=== PATIENT | female | born 1970 | race Caucasian/White ===

== ENCOUNTER 2016-08-01 22:55 | Emergency (ER) | payer OTHER ==
[~2016-08-01 22:55] MED LIST: LASIX20 MG PO; LOVENOX150 MG/ML SC; WARFARIN SODIUM10 MG PO; xarelto PO
--- NOTE | 2016-08-02 02:42 | ED ORDER SUMMARY ---
..... Patient: DESHAWN GENAO OrderSheet [facility] VisitID: [id number] [place] [address] 45y, F Registration Date/Time: 08/01/2016 ORDER SHEET Weight: 97.5 kg (stated) Allergies: Penicillins GENERAL ORDERS: CBC w Diff Urgent (23:33 08/01/2016 Tesha THORNTON) (Ack 23:35 Georgina) (23:37 RCollier R.N.) CMP Urgent (23:33 08/01/2016 Tesha THORNTON) (Ack 23:35 Georgina) (23:37 RCollier R.N.) PT with INR Urgent (23:33 08/01/2016 Tesha THORNTON) (Ack 23:35 Georgina) (23:37 RCollier R.N.) Cardiac Panel Stat (23:33 08/01/2016 Tesha THORNTON) (Ack 23:35 Georgina) (23:37 RCollier R.N.) D-Dimer Urgent (23:33 08/01/2016 Tesha THORNTON) (Ack 23:35 Georgina) (23:37 RCollier R.N.) Serum Qualitative Urgent (23:33 08/01/2016 Tesha THORNTON) (Ack 23:35 Georgina) (23:37 RCollier R.N.) US Venous Right Urgent (23:48 08/01/2016 Tesha THORNTON) (Ack 23:54 Georgina) (Cancelled: Other0:51 Stephanie ER Director Of Donor Relations) CTA Thorax w Cont (No) (See report) Urgent (23:56 08/01/2016 Tesha THORNTON) (Ack 23:58 Georgina) (0:43 Irma) EKG - ER Stat (23:57 08/01/2016 Tesha THORNTON) (Ack 23:58 Georgina) (0:04 Danielena) US Venous Right Urgent (00:51 08/02/2016 Stephanie ER Director Of Donor Relations written order Tesha THORNTON) (Ack 0:53 Georgina) (0:59 GUnger) MEDICATION ORDERS: -- (Xarelto 15 mg po now) (01:52 08/02/2016 Tesha THORNTON) (Ack 1:53 RCollier R.N.) (2:01 RCollier R.N.) IV FLUIDS: IV Saline Lock (23:33 08/01/2016 Tesha THORNTON) (Ack 23:35 RCollier R.N.) IV NS : initial bolus 500 mL (1000 mL/hr), then 125 mL/hr for 4h (NOW); Urgent (23:56 08/01/2016 Tesha THORNTON) (Ack 0:00 RCollier R.N.) (0:01 RCollier R.N.) ORDER SHEET NOTES: [Electronically signed by Lazarus Salas MD (02:54 08/02/2016)] [Electronically signed by Ina Pena R.N. (16:06 08/05/2016)] [Electronically locked/signed by Ina Pena R.N. (16:06 08/05/2016)]
--- NOTE | 2016-08-02 02:42 | ED NURSING NOTES ---
Clinical Report - Nurses [facility] [place] [address] 08/01/2016 22:54 [id number] TRI[facility] Triage time 22:59. Acuity: LEVEL 3. Chief Complaint: RIGHT LOWER EXTREMITY PAIN and SWELLING. Alert. No acute distress. SEPSIS SCREEN: Sepsis Screen. Negative (no infection suspected/documented). --23:04 Ina Pena R.N. 22:59 08/01/16. BP: 127/71. HR: 90. RR: 15 (regular and unlabored). O2 saturation: 100% on room air. Temp: 98.5 F (oral). Pain level now: 09/03. --23:04 Ina Pena R.N. Weight: 97.5 kg stated. Height/Length: 64 inches Per Patient. BMI: 36.9. --23:01 Ina Pena R.N. Medications None. --23:01 Ina Pena R.N. Allergies Penicillins. --23:02 Ina Pena R.N. History Arrived by private vehicle. Historian: patient. Unaccompanied. No injury occurred. This occurred (about 1 1/2 weeks ago). PAST MEDICAL HX: Tetanus status: up-to-date. Immunizations: up-to-date. Last normal menstrual period was 6 weeks ago. Sexual history - sexually active. No contraception. SOCIAL HX: Heavy tobacco smoker (cigarette)- less than 1 pack per day. Regular alcohol use. No drug use. NUTRITIONAL RISK ASSESSMENT: The nutritional risk assessment revealed no deficiencies. FUNCTIONAL ASSESSMENT: Functional assessment: no impairments noted. --23:04 Ina Pena R.N. ( Pt states she has hx of DVT & PE, feels the same symptoms today.). --23:06 Ina Pena R.N. SOCIAL HX: The patient is homeless. --23:21 Ina Pena R.N. PROBLEMS: DVT - Deep Venous Thrombosis. Lower Extremity Pain. DVT - Deep Venous Thrombosis. Pulmonary Embolism. Sinus Problems. Immunizations. Ectopic . Migraine Headache. Myofascial Strain. Back Injury. --: Ina Pena R.N. ADDITIONAL SURGERIES: Appendectomy. Bilateral Tubal Ligation. Ectopic preg. Sinus Surgery. --: Ina Pena R.N. Interventions ID band on patient. To treatment room. --: Ina Pena R.N. PHYSICAL ASSESSMENT Ambulatory to room. Patient gowned. GENERAL / NEURO / PSYCH: Oriented X 4. Alert. Appears in no acute distress. EXTREMITIES: Bilateral non-pitting edema of the lower extremities involving both lower legs. SKIN: Skin intact. Skin is warm and dry. --: Ina Pena R.N. NURSING PROGRESS NOTES Two patient identifiers checked. Call light placed in reach. Side rails up x 1. Bed placed in lowest position. Brakes of bed on. --: Ina Pena R.N. Care transferred and report given. --23: Ina Pena R.N. 23:08/01/2016 Site #1 started via IV in the left forearm with an 20g angiocath, with aseptic technique and good blood return; one attempt. Blood drawn: rainbow set. Labeled in the presence of the patient and sent to the lab. Saline lock flushed with 10 mL saline (Started by Shivam Brown RN). --23: Ina Pena R.N. 00:08/02/2016 Started bag #1 1000 mL IV Fluids IV NS (Saline); bolus of 500 mL over 30 minute(s) then at 125 mL/hr via site #1 via IV pump. Allergies verified and confirmed 5 rights. IV patency established. IV site checked: no pain, redness, or swelling. IV flushed thoroughly pre- and post-medication administration. --00: Ina Pena R.N. EKG time: (0005). EKG was ordered, performed by a tech and shown to the ED physician. --00:06 Ahsan Montiel, ER Automatic Centrifugal Station Operator 00:11 08/02/2016 Hold IV Fluids IV NS: due to diagnostic studies. --00: Ina Pena R.N. 00:25. Patient returned from CT by stretcher with tech. --00:25 Ina Pena R.N. 00:30 08/02/16. BP: 111/57. HR: 74. RR: 15 (regular and unlabored). O2 saturation: 95% on room air. Shannon-Barraza pain scale: 2/10. --00:30 Ina Pena R.N. 00:30 08/02/2016 Restart IV Fluids IV NS: bag #1 500 mL/hr via IV pump. IV patency established. IV site checked: no pain, redness, or swelling. IV flushed thoroughly. Confirmed 5 Rights. --00:31 Ina Pena R.N. 02:00 08/02/2016 Zarelto * PO 15mg --02:01 Ina Pean R.N. DISPOSITION / DISCHARGE 02:04 08/02/16. BP: 113/59. HR: 88. RR: 15. O2 saturation: 99% on room air. Shannon-Barraza pain scale: 2/10. --02:05 Ina Pena R.N. 02:00 08/02/2016 IV Fluids IV NS Discontinued: bag #1 STOPPED. Total amount infused: 642 mL. IV patency established. IV site checked: no pain, redness, or swelling. IV flushed thoroughly. --02:05 Ina Pena R.N. 02:01 08/02/2016 Site #1 removed upon discharge. Catheter intact. Manual pressure and bandage applied. --02:05 Ina Pena R.N. Locked/Released at 08/05/2016 16:06 by Ina Pena R.N.
--- NOTE | 2016-08-02 02:42 | ED CLINICAL REPORT ---
Clinical Report - Physicians/Mid Levels [facility] [address] [place] [address] 08/01/2016 22:54 [id number] Time Seen: 23:07. Arrived- By private vehicle. Historian- patient. HISTORY OF PRESENT ILLNESS Chief Complaint: LOWER EXTREMITY PAIN and SWELLING. Severity is described as being moderate. It has become recently worse. The quality is noted to be aching, "pain" and similar to prior episodes. This started several days ago and is still present and now worse. It was gradual in onset and has been constant. Symptoms located in the area of the right leg. The patient has had swelling. Patient notes the possibility of an injury. Mechanism of injury- ("splitting wood"). Similar symptoms previously: Many times. Diagnosis: deep vein thrombosis. ( patient reports that she has had multiple prior DVTs and pulmonary embolisms. She says that she has had an evaluation to see if she has any heritable causes of this and says that these tests were negative. She says that she has been on Coumadin in the past but that it doesn't work well with her as her levels are very labile. She was most recently on Xarelto, but has not taken any recently.). REVIEW OF SYSTEMS The patient has had moderate calf pain involving the right leg. No cough, palpitations, abdominal pain, constipation or diarrhea. No nausea, vomiting or urinary problems. She has had mild difficulty breathing. The patient has also had dyspnea on exertion. She has had moderate pedal edema involving the right leg. All systems otherwise negative, except as recorded above. PAST HISTORY Problems: DVT - Deep Venous Thrombosis. Lower Extremity Pain. DVT - Deep Venous Thrombosis. Pulmonary Embolism. Sinus Problems. Ectopic . Migraine Headache. Myofascial Strain. Back Pain. Additional Surgeries: Appendectomy. Bilateral Tubal Ligation. Ectopic preg. Sinus Surgery. Medications: None. Allergies: Penicillins. SOCIAL HISTORY Current every day light tobacco smoker (cigarette)- less than 1/2 a pack per day. No alcohol use or drug use. She is homeless. FAMILY HISTORY Diabetes in grandparent; heart disease in multiple family members, grandparent. ADDITIONAL NOTES The nursing notes have been reviewed. PHYSICAL EXAM Vital Signs: 08/01/2016 22:59 BP: 127/71. HR: 90. RR: 15. O2 saturation: 100%. Temp: 98.5 F. Pain level now: 09/03. Have been reviewed. Appearance: Alert. Eyes: Pupils equal, round and reactive to light. ENT: Pharynx normal. Neck: Normal inspection. Neck supple. CVS: Normal heart rate and rhythm. Heart sounds normal. Respiratory: No respiratory distress. Breath sounds normal. Abdomen: Soft and nontender. No organomegaly. Back: Normal inspection. Skin: Skin warm and dry. Extremities: Mild edema of the right lower extremity. Mild right-sided calf tenderness. Extremities otherwise negative. LABS, X-RAYS, AND EKG EKG: Normal EKG. Rate: 77. Prior EKG unavailable. The study has been independently viewed by me. Chest CT: Small pulmonary embolism (multiple). The study was interpreted contemporaneously by me and discussed with the radiologist. Lower Extremity Sonography: Positive exam (proximal popliteal extending through the posterior tibial veins). The exam was performed by a automobile technician. Laboratory Tests: Serum Qualitative: (YOMAIRA: 08/01/2016 23:05) ( [facility] 08[facility]01[facility] 23:43) Final results Test Result Flag Units (Reference) , SERUM NEGATIVE CBC w Diff: (YOMAIRA: 08/01/2016 23:05) ( [facility] 08/01/2016 23:42) Final results Test Result Flag Units (Reference) WHITE BLOOD COUNT 8.8 K/uL (4.5-11.5) RED BLOOD COUNT 4.92 M/uL (4.00-5.20) HEMOGLOBIN 15.1 gm/dL (12.0-16.0) HEMATOCRIT 46.0 % (36.0-46.0) MEAN CELL VOLUME 93 fL (80-100) MEAN CORPUSCULAR HGB 31 pg (26-34) MEAN CORPUSCULAR HGB CONC 33 g/dL (31-37) RED CELL DISTRIBUTION WIDTH 13.7 % (11.6-14.8) PLATELET COUNT 120 L K/uL (150-400) LYMPH % 32.3 % (25-40) MONO % 6.1 % (3-14) GRANULOCYTE % 61.6 (53-90) PT with INR: (YOMAIRA: 08/01/2016 23:05) ( [facility] 08/01/2016 23:45) Final results Test Result Flag Units (Reference) INR 0.9 (0.8-1.2) Low Intensity Therapy: INR 1.5-2.0 PT range 18.5-23.1Mod.Intensity Therapy: INR 2.0-3.0 PT range 23.1-31.5High Intensity Therapy: INR 2.5-3.5 PT range 27.4-35.5High Intensity Therapy 2: INR 3.0-4.0 PT range 31.5-39.3 D-DIMER QUANTITATIVE 3.62 H ug/mLFEU (0.27-0.52) The primary value of this quantitative assay relates toits negative predictive value (i.e. exclusion) of pulmonaryembolism/deep vein thrombosis/DIC.Elevated levels of d-dimer may also occur with:, age, cancer, inflammation, liver disease,post-op, infection, hematoma, coronary disease, peripheralarteriopathy, bleeding disorders and thrombolytic treatment.Results should be correlated with other clinical andradiological data.Testing Methodology: Latex Immunoassay CHEM 13 PANEL: (YOMAIRA: 08/01/2016 23:05) ( [facility] 08/01/2016 23:54) Final results Test Result Flag Units (Reference) GLUCOSE 110 mg/dL (70-110) BUN 14 mg/dL (7-18) CREATININE 0.8 mg/dL (0.6-1.3) Estimated GFR >60 mL/min Estimated GFR- >60 mL/min Note: Persistent reduction over 3 months in eGFR<60 mL/min/1.73 m2 defines CKD. Patients with eGFR values>=60 mL/min/1.73 m2 may also have CKD if evidence ofpersistent proteinuria. Additional information may be foundat www.kidney.org. SODIUM 142 mmol/L (136-145) POTASSIUM 4.2 mmol/L (3.5-5.1) CHLORIDE 106 mmol/L (98-107) CARBON DIOXIDE 28 mmol/L (21-32) CALCIUM 9.0 mg/dL (8.5-10.1) TOTAL PROTEIN 6.6 g/dL (6.4-8.2) ALBUMIN 3.5 g/dL (3.3-5.0) BILIRUBIN, TOTAL 0.2 mg/dL (0.0-1.0) ALKALINE PHOSPHATASE 68 U/L (46-116) AST (SGOT) 9 L U/L (15-37) ALT (SGPT) 23 U/L (12-78) MAGNESIUM 2.0 mg/dL (1.8-2.4) CPK 73 U/L (24-260) TROPONIN I <0.05 ng/mL (0.00-1.5) TROPONIN REFERENCE RANGE:<0.1 NEGATIVE0.1-1.5 INDETERMINANT>1.5 POSITIVE . PROGRESS AND PROCEDURES Patient/family counseled. Old medical records reviewed. Disposition: Discharged. Condition: stable. CLINICAL IMPRESSION Acute pulmonary embolism. Acute deep venous thrombosis of the right popliteal vein. INSTRUCTIONS Warnings: Further evaluation is necessary. GENERAL WARNINGS: Return or contact your physician immediately if your condition worsens or changes unexpectedly, if not improving as expected, or if other problems arise. Prescription Medications: Xarelto 15 mg tabs # forty two (42) tabs Si tab po Q 12 H. Follow-up: Return to the emergency department as needed. Understanding of the discharge instructions verbalized by patient. Follow-up with: [facility], , , [address], , [place], [id number] Follow up tomorrow. Call for an appointment. (Electronically signed by Lazarus Salas MD 08/02/2016 2:54)
--- NOTE | 2016-08-02 02:42 | ED CLINICAL REPORT ---
Clinical Report - Physicians/Mid Levels [facility] [address] [place] [address] 08/01/2016 22:54 [id number] Time Seen: 23:07. Arrived- By private vehicle. Historian- patient. HISTORY OF PRESENT ILLNESS Chief Complaint: LOWER EXTREMITY PAIN and SWELLING. Severity is described as being moderate. It has become recently worse. The quality is noted to be aching, "pain" and similar to prior episodes. This started several days ago and is still present and now worse. It was gradual in onset and has been constant. Symptoms located in the area of the right leg. The patient has had swelling. Patient notes the possibility of an injury. Mechanism of injury- ("splitting wood"). Similar symptoms previously: Many times. Diagnosis: deep vein thrombosis. ( patient reports that she has had multiple prior DVTs and pulmonary embolisms. She says that she has had an evaluation to see if she has any heritable causes of this and says that these tests were negative. She says that she has been on Coumadin in the past but that it doesn't work well with her as her levels are very labile. She was most recently on Xarelto, but has not taken any recently.). REVIEW OF SYSTEMS The patient has had moderate calf pain involving the right leg. No cough, palpitations, abdominal pain, constipation or diarrhea. No nausea, vomiting or urinary problems. She has had mild difficulty breathing. The patient has also had dyspnea on exertion. She has had moderate pedal edema involving the right leg. All systems otherwise negative, except as recorded above. PAST HISTORY Problems: DVT - Deep Venous Thrombosis. Lower Extremity Pain. DVT - Deep Venous Thrombosis. Pulmonary Embolism. Sinus Problems. Ectopic . Migraine Headache. Myofascial Strain. Back Pain. Additional Surgeries: Appendectomy. Bilateral Tubal Ligation. Ectopic preg. Sinus Surgery. Medications: None. Allergies: Penicillins. SOCIAL HISTORY Current every day light tobacco smoker (cigarette)- less than 1/2 a pack per day. No alcohol use or drug use. She is homeless. FAMILY HISTORY Diabetes in grandparent; heart disease in multiple family members, grandparent. ADDITIONAL NOTES The nursing notes have been reviewed. PHYSICAL EXAM Vital Signs: 08/01/2016 22:59 BP: 127/71. HR: 90. RR: 15. O2 saturation: 100%. Temp: 98.5 F. Pain level now: 09/03. Have been reviewed. Appearance: Alert. Eyes: Pupils equal, round and reactive to light. ENT: Pharynx normal. Neck: Normal inspection. Neck supple. CVS: Normal heart rate and rhythm. Heart sounds normal. Respiratory: No respiratory distress. Breath sounds normal. Abdomen: Soft and nontender. No organomegaly. Back: Normal inspection. Skin: Skin warm and dry. Extremities: Mild edema of the right lower extremity. Mild right-sided calf tenderness. Extremities otherwise negative. LABS, X-RAYS, AND EKG EKG: Normal EKG. Rate: 77. Prior EKG unavailable. The study has been independently viewed by me. Chest CT: Small pulmonary embolism (multiple). The study was interpreted contemporaneously by me and discussed with the radiologist. Lower Extremity Sonography: Positive exam (proximal popliteal extending through the posterior tibial veins). The exam was performed by a body technician. Laboratory Tests: Serum Qualitative: (YOMAIRA: 08/01/2016 23:05) ( [facility] 23:43) Final results Test Result Flag Units (Reference) , SERUM NEGATIVE CBC w Diff: (YOMAIRA: 08/01/2016 23:05) ( [facility] 08/01/2016 23:42) Final results Test Result Flag Units (Reference) WHITE BLOOD COUNT 8.8 K/uL (4.5-11.5) RED BLOOD COUNT 4.92 M/uL (4.00-5.20) HEMOGLOBIN 15.1 gm/dL (12.0-16.0) HEMATOCRIT 46.0 % (36.0-46.0) MEAN CELL VOLUME 93 fL (80-100) MEAN CORPUSCULAR HGB 31 pg (26-34) MEAN CORPUSCULAR HGB CONC 33 g/dL (31-37) RED CELL DISTRIBUTION WIDTH 13.7 % (11.6-14.8) PLATELET COUNT 120 L K/uL (150-400) LYMPH % 32.3 % (25-40) MONO % 6.1 % (3-14) GRANULOCYTE % 61.6 (53-90) PT with INR: (YOMAIRA: 08/01/2016 23:05) ( [facility] 08/01/2016 23:45) Final results Test Result Flag Units (Reference) INR 0.9 (0.8-1.2) Low Intensity Therapy: INR 1.5-2.0 PT range 18.5-23.1Mod.Intensity Therapy: INR 2.0-3.0 PT range 23.1-31.5High Intensity Therapy: INR 2.5-3.5 PT range 27.4-35.5High Intensity Therapy 2: INR 3.0-4.0 PT range 31.5-39.3 D-DIMER QUANTITATIVE 3.62 H ug/mLFEU (0.27-0.52) The primary value of this quantitative assay relates toits negative predictive value (i.e. exclusion) of pulmonaryembolism/deep vein thrombosis/DIC.Elevated levels of d-dimer may also occur with:, age, cancer, inflammation, liver disease,post-op, infection, hematoma, coronary disease, peripheralarteriopathy, bleeding disorders and thrombolytic treatment.Results should be correlated with other clinical andradiological data.Testing Methodology: Latex Immunoassay CHEM 13 PANEL: (YOMAIRA: 08/01/2016 23:05) ( [facility] 08/01/2016 23:54) Final results Test Result Flag Units (Reference) GLUCOSE 110 mg/dL (70-110) BUN 14 mg/dL (7-18) CREATININE 0.8 mg/dL (0.6-1.3) Estimated GFR >60 mL/min Estimated GFR- >60 mL/min Note: Persistent reduction over 3 months in eGFR<60 mL/min/1.73 m2 defines CKD. Patients with eGFR values>=60 mL/min/1.73 m2 may also have CKD if evidence ofpersistent proteinuria. Additional information may be foundat www.kidney.org. SODIUM 142 mmol/L (136-145) POTASSIUM 4.2 mmol/L (3.5-5.1) CHLORIDE 106 mmol/L (98-107) CARBON DIOXIDE 28 mmol/L (21-32) CALCIUM 9.0 mg/dL (8.5-10.1) TOTAL PROTEIN 6.6 g/dL (6.4-8.2) ALBUMIN 3.5 g/dL (3.3-5.0) BILIRUBIN, TOTAL 0.2 mg/dL (0.0-1.0) ALKALINE PHOSPHATASE 68 U/L (46-116) AST (SGOT) 9 L U/L (15-37) ALT (SGPT) 23 U/L (12-78) MAGNESIUM 2.0 mg/dL (1.8-2.4) CPK 73 U/L (24-260) TROPONIN I <0.05 ng/mL (0.00-1.5) TROPONIN REFERENCE RANGE:<0.1 NEGATIVE0.1-1.5 INDETERMINANT>1.5 POSITIVE . PROGRESS AND PROCEDURES Patient/family counseled. Old medical records reviewed. Disposition: Discharged. Condition: stable. CLINICAL IMPRESSION Acute pulmonary embolism. Acute deep venous thrombosis of the right popliteal vein. INSTRUCTIONS Warnings: Further evaluation is necessary. GENERAL WARNINGS: Return or contact your physician immediately if your condition worsens or changes unexpectedly, if not improving as expected, or if other problems arise. Prescription Medications: Xarelto 15 mg tabs # forty two (42) tabs Si tab po Q 12 H. Follow-up: Return to the emergency department as needed. Understanding of the discharge instructions verbalized by patient. Follow-up with: [facility], , , [address], , [place], [phone] Follow up tomorrow. Call for an appointment. (Electronically signed by Lazarus Salas MD 08/02/2016 2:54)
--- NOTE | 2016-08-02 02:42 | ED ORDER SUMMARY ---
..... Patient: DESHAWN GENAO OrderSheet [facility] VisitID: [id number] [place] [address] 45y, F Registration Date/Time: 08/01/2016 ORDER SHEET Weight: 97.5 kg (stated) Allergies: Penicillins GENERAL ORDERS: CBC w Diff Urgent (23:33 08/01/2016 Tesha THORNTON) (Ack 23:35 Georgina) (23:37 RCollier R.N.) CMP Urgent (23:33 08/01/2016 Tesha THORNTON) (Ack 23:35 Georgina) (23:37 RCollier R.N.) PT with INR Urgent (23:33 08/01/2016 Tesha THORNTON) (Ack 23:35 Georgina) (23:37 RCollier R.N.) Cardiac Panel Stat (23:33 08/01/2016 Tesha THORNTON) (Ack 23:35 Georgina) (23:37 RCollier R.N.) D-Dimer Urgent (23:33 08/01/2016 Tesha THORNTON) (Ack 23:35 Georgina) (23:37 RCollier R.N.) Serum Qualitative Urgent (23:33 08/01/2016 Tesha THORNTON) (Ack 23:35 Georgina) (23:37 RCollier R.N.) US Venous Right Urgent (23:48 08/01/2016 Tesha THORNTON) (Ack 23:54 Georgina) (Cancelled: Other0:51 Stephanie ER Research Hydraulic Engineer) CTA Thorax w Cont (No) (See report) Urgent (23:56 08/01/2016 Tesha THORNTON) (Ack 23:58 Georgina) (0:43 Irma) EKG - ER Stat (23:57 08/01/2016 Tesha THORNTON) (Ack 23:58 Georgina) (0:04 Danielena) US Venous Right Urgent (00:51 08/02/2016 Stephanie ER Research Hydraulic Engineer written order Tesha THORNTON) (Ack 0:53 Georgina) (0:59 GUnger) MEDICATION ORDERS: -- (Xarelto 15 mg po now) (01:52 08/02/2016 Tesha THORNTON) (Ack 1:53 RCollier R.N.) (2:01 RCollier R.N.) IV FLUIDS: IV Saline Lock (23:33 08/01/2016 Tesha THRONTON) (Ack 23:35 RCollier R.N.) IV NS : initial bolus 500 mL (1000 mL/hr), then 125 mL/hr for 4h (NOW); Urgent (23:56 08/01/2016 Tesha THORNTON) (Ack 0:00 RCollier R.N.) (0:01 RCollier R.N.) ORDER SHEET NOTES: [Electronically signed by Lazarus Salas MD (02:54 08/02/2016)] [Electronically signed by Ina Pena R.N. (16:06 08/05/2016)] [Electronically locked/signed by Ina Pena R.N. (16:06 08/05/2016)]
--- NOTE | 2016-08-02 07:00 | DIAGNOSTIC IMAGING REPORT ---
PROCEDURE: US VENOUS - RIGHT EXT INDICATION: Right leg swelling. History of left DVT. TECHNIQUE: Color Doppler duplex imaging of the deep and superficial venous system without and with compression. COMPARISON: Compared to venous ultrasound of the left lower extremity on 01/03/1969 and 01/01/2016. FINDINGS: There is acute occlusive deep vein thrombosis extending from the distal popliteal vein into the posterior tibial veins. The superficial femoral, common femoral, profunda femoral veins are normal. Greater saphenous vein is normal IMPRESSION: 1. There is acute occlusive deep vein thrombosis extending from the distal popliteal vein into the posterior tibial calf veins.
--- NOTE | 2016-08-02 07:08 | DIAGNOSTIC IMAGING REPORT ---
PROCEDURE: CTA THORAX WITH CONTRAST INDICATION: Shortness of breath. Chest pain. History of pulmonary embolus. Elevated D-dimer (3.62). TECHNIQUE: 90 ml of Isovue 370 was injected intravenously and axial images were obtained of the entire thorax with 3D sagittal and coronal MIP reconstructions. Preliminary report provided by Melinda Mcwilliams MD ([facility]). COMPARISON: Comparison is made to CT bone arteriogram on 01/09. FINDINGS: There are moderate to large emboli in the right lower lobe, anterior segment right upper lobe, and posterior segment right lower lobe. Lungs are clear. Heart and mediastinum are normal. Thorax is normal. There is a 2.6 cm stable low density nodule in the left adrenal gland (2 HU) consistent with benign adenoma or cyst. IMPRESSION: 1. Moderate to large right pulmonary emboli. 2. Stable 2.6 cm left adrenal benign adenoma (versus cyst). 3. Preliminary report provided to Dr. Salas. All CT scans at this facility use dose modulation, iterative reconstruction, and/or weight-based dosing when appropriate to reduce radiation dose to as low as reasonably achievable.
--- NOTE | 2016-08-05 16:07 | ED MAR SUMMARY ---
..... Medication Administration Record [facility] [address] [place] [address] Patient: DESHAWN GENAO Visit ID: [id number] 45y, F Weight: 97.5 kg Height/Length: 64 in BMI: 36.9 ALLERGIES: Penicillins Start 00:01 08/02/2016 Ina Pena RMalachi, Stop 02:00 08/02/2016 Ina Pena R.N. Medication Administered: IV NS (SALINE), Dose: IV Fluids, Rate: 125 mL/hr, Bolus: 500 mL over 30 minute(s), Dispensed: 1000 mL bag, Site: #1 left forearm. Medication Ordered: IV NS : initial bolus 500 mL (1000 mL/hr), then 125 mL/hr for 4h (NOW); Urgent. Given 02:00 08/02/2016 Ina Pena RMalachi Medication Administered: Zarelto *, Dose: 15mg * PO. Medication Ordered: -- (Xarelto 15 mg po now).
--- NOTE | 2016-08-05 16:07 | ED MED RECONCILIATION SUMMARY ---
Patient: DESHAWN GENAO Medication Reconciliation Report [facility] VisitID: [id number] [address] [place] [address] 45y, F Registration Date/Time: 08/01/2016 Weight: 97.5 kg Height/Length: 64 in. BMI: 36.9 ALLERGIES: Penicillins The patient's Home Medications are listed below: NONE. The source(s) of the original Home Medication information: Not obtained. The following Medications were given to the patient in the Emergency Department: IV NS IV Fluids bolus 500 mL over 30 minute(s), then 125 mL/hr, administered: 08/02/2016 12:01:00 AM Zarelto PO 15mg, administered: 08/02/2016 2:00:00 AM The following Medications were prescribed to the patient: Xarelto 15 mg tabs # forty two (42) tabsSi tab po Q 12 H. -- Lazarus Salas MD
--- NOTE | 2016-08-05 16:07 | ED MED RECONCILIATION SUMMARY ---
Patient: DESHAWN GENAO Medication Reconciliation Report [facility] VisitID: [id number] [address] [place] [address] 45y, F Registration Date/Time: 08/01/2016 Weight: 97.5 kg Height/Length: 64 in. BMI: 36.9 ALLERGIES: Penicillins The patient's Home Medications are listed below: NONE. The source(s) of the original Home Medication information: Not obtained. The following Medications were given to the patient in the Emergency Department: IV NS IV Fluids bolus 500 mL over 30 minute(s), then 125 mL/hr, administered: 08/02/2016 12:01:00 AM Zarelto PO 15mg, administered: 08/02/2016 2:00:00 AM The following Medications were prescribed to the patient: Xarelto 15 mg tabs # forty two (42) tabsSi tab po Q 12 H. -- Lazarus Salas MD
--- NOTE | 2016-08-05 16:07 | ED DISCHARGE INSTRUCTIONS ---
Patient: DESHAWN GENAO General Instructions [facility] VisitID: [id number] [address] [place] [address] 45y, F Registration Date/Time: 08/01/2016 Acute pulmonary embolism. Acute deep venous thrombosis of the right popliteal vein. INSTRUCTIONS Warnings: Further evaluation is necessary. GENERAL WARNINGS: Return or contact your physician immediately if your condition worsens or changes unexpectedly, if not improving as expected, or if other problems arise. Prescription Medications: Xarelto 15 mg tabs # forty two (42) tabs Si tab po Q 12 H. Follow-up: Return to the emergency department as needed. Understanding of the discharge instructions verbalized by patient. Follow-up with: [facility], , , [address], , [place], [address] Follow up tomorrow. Call for an appointment. ADDITIONAL INFORMATION Deep Vein Thrombosis Deep Vein Thrombosis (DVT) means there is a blood clot in a deep vein of the leg. This may cause redness, swelling, warmth and pain of the leg. If the blood clot grows larger, a piece may break off and go to the lungs (pulmonary embolus) or to the brain (stroke). Factors that increase risk of a DVT include: overweight, smoking, use of estrogen replacement therapy. Prolonged periods without movement (such as long distance travel, wearing a fracture cast, and prolonged bed rest after surgery or during an illness) also increases the risk of a DVT. Home Care: Stay off the affected leg as much as possible during the next week. When sitting or lying down, keep the leg elevated. Compression stockings may be advised to improve blood flow in the lower legs. When resting, move your ankles, toes and knees frequently to stimulate blood flow. You will be prescribed an anti-coagulant medicine (pills or shots). Take it exactly as directed. Follow Up with your doctor as advised. NOTE: A radiologist will review any X-rays that were taken. We will notify you of any new findings that may affect your care. Get Prompt Medical Attention if any of the following occur: Shortness of breath or painful breathing Chest pain, repeated cough or coughing up blood Fever of 100.4F (38C) or higher, or as directed by your healthcare provider Increasing swelling or increasing pain in the leg Spreading redness Unexpected bleeding (nose, gums, cuts, urinary tract, vagina, rectum) You have been given the following additional information: DVT (Electronically signed by Lazarus Salas MD 08/02/2016 2:54)
--- NOTE | 2016-08-05 16:07 | ED MAR SUMMARY ---
..... Medication Administration Record [facility] [address] [place] [address] Patient: DESHAWN GENAO Visit ID: [id number] 45y, F Weight: 97.5 kg Height/Length: 64 in BMI: 36.9 ALLERGIES: Penicillins Start 00:01 08/02/2016 Ina Pena RMalachi, Stop 02:00 08/02/2016 Ina Pena R.N. Medication Administered: IV NS (SALINE), Dose: IV Fluids, Rate: 125 mL/hr, Bolus: 500 mL over 30 minute(s), Dispensed: 1000 mL bag, Site: #1 left forearm. Medication Ordered: IV NS : initial bolus 500 mL (1000 mL/hr), then 125 mL/hr for 4h (NOW); Urgent. Given 02:00 08/02/2016 Ina Pena RMalachi Medication Administered: Zarelto *, Dose: 15mg * PO. Medication Ordered: -- (Xarelto 15 mg po now).
--- NOTE | 2016-08-05 16:07 | ED DISCHARGE INSTRUCTIONS ---
Patient: DESHAWN GENAO General Instructions [facility] VisitID: [id number] [address] [place] [address] 45y, F Registration Date/Time: 08/01/2016 Acute pulmonary embolism. Acute deep venous thrombosis of the right popliteal vein. INSTRUCTIONS Warnings: Further evaluation is necessary. GENERAL WARNINGS: Return or contact your physician immediately if your condition worsens or changes unexpectedly, if not improving as expected, or if other problems arise. Prescription Medications: Xarelto 15 mg tabs # forty two (42) tabs Si tab po Q 12 H. Follow-up: Return to the emergency department as needed. Understanding of the discharge instructions verbalized by patient. Follow-up with: [facility], , , [address], , [place], [address] Follow up tomorrow. Call for an appointment. ADDITIONAL INFORMATION Deep Vein Thrombosis Deep Vein Thrombosis (DVT) means there is a blood clot in a deep vein of the leg. This may cause redness, swelling, warmth and pain of the leg. If the blood clot grows larger, a piece may break off and go to the lungs (pulmonary embolus) or to the brain (stroke). Factors that increase risk of a DVT include: overweight, smoking, use of estrogen replacement therapy. Prolonged periods without movement (such as long distance travel, wearing a fracture cast, and prolonged bed rest after surgery or during an illness) also increases the risk of a DVT. Home Care: Stay off the affected leg as much as possible during the next week. When sitting or lying down, keep the leg elevated. Compression stockings may be advised to improve blood flow in the lower legs. When resting, move your ankles, toes and knees frequently to stimulate blood flow. You will be prescribed an anti-coagulant medicine (pills or shots). Take it exactly as directed. Follow Up with your doctor as advised. NOTE: A radiologist will review any X-rays that were taken. We will notify you of any new findings that may affect your care. Get Prompt Medical Attention if any of the following occur: Shortness of breath or painful breathing Chest pain, repeated cough or coughing up blood Fever of 100.4F (38C) or higher, or as directed by your healthcare provider Increasing swelling or increasing pain in the leg Spreading redness Unexpected bleeding (nose, gums, cuts, urinary tract, vagina, rectum) You have been given the following additional information: DVT (Electronically signed by Lazarus Salas MD 08/02/2016 2:54)
== END 2016-08-02 02:11 | disposition home or self-care (01) ==
LOC: ED SRH 22:55
DX: I82.431 Acute embolism and thrombosis of right popliteal vein (principal); I26.99 Other pulmonary embolism without acute cor pulmonale; F17.210 Nicotine dependence, cigarettes, uncomplicated; Z88.0 Allergy status to penicillin

== ENCOUNTER 2016-08-06 14:04 | Emergency (ER) | payer OTHER ==
--- NOTE | 2016-08-06 16:40 | DIAGNOSTIC IMAGING REPORT ---
PROCEDURE: CTA THORAX WITH CONTRAST INDICATION: PULMONARY EMBOLUS TECHNIQUE: 84 ml of Isovue 370 was injected intravenously and axial images were obtained of the chest with 3D sagittal and coronal MIP reconstructions. COMPARISON: 08/02/2016, 01/02/2016 FINDINGS: There is a new small pulmonary embolus in the anterior basilar segmental artery. There is a stable degree of clot in the posterior basal segmental artery of the right lower lobe, lateral basilar segment right lower lobe, and right middle lobe lateral segmental artery. There has been slight interval decrease in the anterior segment right upper lobe artery clot. No left-sided pulmonary emboli. The central pulmonary arteries are normal caliber. Thoracic aorta is normal caliber. The great vessels demonstrate a normal branching pattern. Heart size is normal. No pericardial effusion. Minor subcarinal adenopathy, stable. No mediastinal masses. The esophagus is normal in caliber without hiatal hernia. The thyroid gland is normal. Subtle patchy centrilobular ground-glass opacity involving the right upper lobe, slight increase in posterior subpleural right lower lobe atelectatic change, and a stable subpleural cystic change laterally in the right upper lobe. The airway is patent and branches normally. No pleural effusions or pneumothorax. Osseous structures are intact. The images obtained of the upper abdomen demonstrate left adrenal adenoma. IMPRESSION: 1. New small inferobasilar segmental artery pulmonary embolus. 2. Slight decrease in right upper lobe anterior segmental embolus. 3. Stable moderate right lower lobe pulmonary emboli, multiple branches. 4. Minor developing atelectatic changes posteriorly right lower lobe. No other evidence of pulmonary infarct. 5. Subtle chronic parenchymal changes right upper lobe, similar compared to both prior studies. This may be a chronic inflammatory process such as hypersensitivity pneumonitis. Less likely to represent acute infectious process. 6. Discussed with Natalia Magdaleno in the emergency room.
--- NOTE | 2016-08-06 19:59 | ED CLINICAL REPORT ---
Clinical Report - Physicians/Mid Levels [facility] [address] [place] [address] 08/06/2016 14:05 [id number] Time Seen: 14:22; initial patient contact, initial documentation, patient care assumed. Arrived- By private vehicle. Historian- patient. RETURN VISIT: recently seen in this ED by another ED physician. Seen now for a new unrelated complaint. HISTORY OF PRESENT ILLNESS Chief Complaint: CHEST PAIN and DISCOMFORT. It is described as sharp and "pain" and stabbing and it is described as located in the left chest area. No radiation. At its maximum, severity described as severe. When seen in the E.D., it was gone. Modifying factors. Not worsened by anything. Not relieved by anything. This started today and is now gone. It was abrupt in onset and has been intermittent (lasting 5 - 10 seconds). Onset during random. No nausea, vomiting, difficulty breathing or diaphoresis. (L side under L breast). No additional chest pain. Similar symptoms previously: Many times, as bad. Recent medical care: The patient was seen recently at this facility in the emergency department and a clinic. ( txed here 08/01 for pe and dvt, dc home on xarelto, pt had pe's before, was on xarelto before but was taken off it, when pt came in the other day it was because of leg pain, not chest issues, today was her scheduled f/u and she went to clinic and told them she was having random chest pain, they sent her here). REVIEW OF SYSTEMS The patient has had a nonproductive cough (for 1 1/2 months ago). No pedal edema, calf pain or difficulty breathing. All systems otherwise negative, except as recorded above. PAST HISTORY See nurses notes. PROBLEMS: DVT - Deep Venous Thrombosis. Lower Extremity Pain. DVT - Deep Venous Thrombosis. Pulmonary Embolism. Sinus Problems. Immunizations. Ectopic . Migraine Headache. Myofascial Strain. Back Injury. LNMP - Last Normal Menstrual Period. Back Pain. --14:12 Giuseppe, K Moira, R.N. ADDITIONAL SURGERIES: Appendectomy. Bilateral Tubal Ligation. Ectopic preg. Sinus Surgery. --14:12 Tiara Chin R.N. SOCIAL HISTORY Light tobacco smoker. No alcohol use or drug use. No recent travel. Is a local resident. FAMILY HISTORY History of heart disease. Diabetes in grandparent. peripheral artery disease. ADDITIONAL NOTES The nursing notes have been reviewed with agreement regarding the chief complaint, HPI, ROS, PMH and patient medications and allergies. PHYSICAL EXAM Vital Signs: 08/06/2016 14:08 BP: 127/58. HR: 69. RR: 16. O2 saturation: 99%. Have been reviewed as normal and appear to be correct. Temperature: 98.1 oral- temperature normal. Appearance: Alert. Oriented X3. No acute distress. Eyes: Pupils equal, round and reactive to light. Eyes normal inspection. Neck: Normal inspection. Neck supple. CVS: Normal heart rate and rhythm. Heart sounds normal. Pulses normal. Respiratory: No respiratory distress. Breath sounds normal. Chest nontender. Back: Normal external inspection. Skin: Skin warm and dry. Normal skin color. No rash. Normal skin turgor. Extremities: Extremities exhibit normal ROM. No lower extremity edema. Neuro: Oriented X 3. No motor deficit. No sensory deficit. LABS, X-RAYS, AND EKG EKG: EKG time: (1416). No acute process. No acute ischemia. Normal EKG. Rate: 68. Normal EKG. interpreted by Dr Younger and reviewed by me at 1438. EKG unchanged when compared with prior EKG. The EKG appears to be a good tracing. Interpretation time: 1418. Chest CT: . The study was interpreted by the radiologist and discussed with the radiologist. Interpretation time: 1607. Laboratory Tests: CBC w Diff: (YOMAIRA: 08/06/2016 14:22) ( MsgRcvd 08/06/2016 14:46) Final results Test Result Flag Units (Reference) WHITE BLOOD COUNT 6.9 K/uL (4.5-11.5) RED BLOOD COUNT 4.58 M/uL (4.00-5.20) HEMOGLOBIN 14.4 gm/dL (12.0-16.0) HEMATOCRIT 42.4 % (36.0-46.0) MEAN CELL VOLUME 93 fL (80-100) MEAN CORPUSCULAR HGB 31 pg (26-34) MEAN CORPUSCULAR HGB CONC 34 g/dL (31-37) RED CELL DISTRIBUTION WIDTH 13.9 % (11.6-14.8) PLATELET COUNT 154 K/uL (150-400) NEUTROPHIL % 59.9 % (50-75) LYMPH % 27.1 % (25-40) MONO % 8.9 % (3-14) EOSINOPHIL % 3.6 % (0-4) BASOPHIL % 0.5 % (0-2) [id number]: (YOMAIRA: 08/06/2016 14:22) ( [facility] 08/06/2016 14:57) Final results Test Result Flag Units (Reference) D-DIMER QUANTITATIVE 0.85 H ug/mLFEU (0.27-0.52) The primary value of this quantitative assay relates toits negative predictive value (i.e. exclusion) of pulmonaryembolism/deep vein thrombosis/DIC.Elevated levels of d-dimer may also occur with:, age, cancer, inflammation, liver disease,post-op, infection, hematoma, coronary disease, peripheralarteriopathy, bleeding disorders and thrombolytic treatment.Results should be correlated with other clinical andradiological data.Testing Methodology: Latex Immunoassay CPK: (YOMAIRA: 08/06/2016 17:55) ( [facility] 08/06/2016 18:26) Final results Test Result Flag Units (Reference) CPK 91 U/L (24-260) TROPONIN I <0.05 ng/mL (0.00-1.5) TROPONIN REFERENCE RANGE:<0.1 NEGATIVE0.1-1.5 INDETERMINANT>1.5 POSITIVE CMP: (YOMAIRA: 08/06/2016 14:22) ( [facility] 08/06/2016 15:16) Final results Test Result Flag Units (Reference) GLUCOSE 95 mg/dL (70-110) BUN 12 mg/dL (7-18) CREATININE 0.8 mg/dL (0.6-1.3) Estimated GFR >60 mL/min Estimated GFR- >60 mL/min Note: Persistent reduction over 3 months in eGFR<60 mL/min/1.73 m2 defines CKD. Patients with eGFR values>=60 mL/min/1.73 m2 may also have CKD if evidence ofpersistent proteinuria. Additional information may be foundat [email or web address].org. SODIUM 140 mmol/L (136-145) POTASSIUM 4.2 mmol/L (3.5-5.1) CHLORIDE 104 mmol/L (98-107) CARBON DIOXIDE 27 mmol/L (21-32) CALCIUM 8.8 mg/dL (8.5-10.1) TOTAL PROTEIN 7.0 g/dL (6.4-8.2) ALBUMIN 3.6 g/dL (3.3-5.0) BILIRUBIN, TOTAL 0.4 mg/dL (0.0-1.0) ALKALINE PHOSPHATASE 76 U/L (46-116) AST (SGOT) 15 U/L (15-37) ALT (SGPT) 24 U/L (12-78) CPK 108 U/L (24-260) TROPONIN I <0.05 ng/mL (0.00-1.5) TROPONIN REFERENCE RANGE:<0.1 NEGATIVE0.1-1.5 INDETERMINANT>1.5 POSITIVE . PROGRESS AND PROCEDURES Course of Care: labs, ct, ekg, and us from last visit D-DIMER QUANTITATIVE 3.62 H ug/mLFEU (0.27-0.52) EKG: Normal EKG. Rate: 77. Prior EKG unavailable. The study has been independently viewed by me. Chest CT: Small pulmonary embolism (multiple). The study was interpreted contemporaneously by me and discussed with the radiologist. Lower Extremity Sonography: Positive exam (proximal popliteal extending through the posterior tibial veins). The exam was performed by a vending technician. pt had random episode of cp immediately after exam, and it lasted 8 sec, sharp, stabbing, no diaphoresis, no sob or dypsnea, and no change on nurse monitoring in [facility] 15:00 08/06/16. had discussion with Dr Michele re pt's tx plan and cta order, after discussion, Dr Michele agreed with the current orders and tx plan [id number]. pt updated with current lab and ct results, pending 2nd set of cardica enzymes 18:49 08/06/16. Dr Younger consulted on case re my dc plan, he agrees with my plan to leave pt on her current dose of xarelto and f/u with pcp. Patient counseled in person regarding the patient's stable condition, test results and diagnosis. 18:31. Differential Diagnosis: I considered muscle strain, costochondritis, myositis, pleurisy, myocardial infarction, intermediate coronary syndrome, unstable angina, angina, aortic dissection, mitral valve prolapse, pericarditis, pulmonary embolism, pneumonia, gastroesophageal reflux disease, esophagitis and esophageal spasm as a possible cause of chest pain in this patient. This is a partial list of diagnoses considered. Above considerations are based on history, physical exam, reassessment, laboratory data, EKG and other information. Differential diagnosis was discussed with patient. Disposition: Discharged home in good and unchanged condition (18:38). Condition: good and stable. CLINICAL IMPRESSION Atypical chest pain .12 lead EKG performed. Acute pulmonary embolism. No acute cor pulmonale, hypotension or respiratory failure. No pulmonary embolism associated with , childbirth, ectopic or . INSTRUCTIONS (stay on Xarelto on current dose as previously directed and discussed). Warnings: Further evaluation is necessary in order to assess the possibility of serious illness. It is very important to follow up with a physician. GENERAL WARNINGS: Return or contact your physician immediately if your condition worsens or changes unexpectedly, if not improving as expected, or if other problems arise. SPECIFICALLY, return if you develop chest, neck, jaw, shoulder, arm, or back pain, difficulty breathing, a fluttering sensation in your chest, lightheadedness, fainting, excessive fatigue, or sudden sweating. Follow-up: Follow up with your doctor tomorrow even if well. Call for an appointment. Summary of care provided to patient. Understanding of the discharge instructions verbalized by patient. (Electronically signed by Natalia Magdaleno A.R.N.P. 08/06/2016 22:17)
--- NOTE | 2016-08-06 19:59 | ED CLINICAL REPORT ---
Clinical Report - Physicians/Mid Levels [facility] [address] [place] [address] 08/06/2016 14:05 [id number] Time Seen: 14:22; initial patient contact, initial documentation, patient care assumed. Arrived- By private vehicle. Historian- patient. RETURN VISIT: recently seen in this ED by another ED physician. Seen now for a new unrelated complaint. HISTORY OF PRESENT ILLNESS Chief Complaint: CHEST PAIN and DISCOMFORT. It is described as sharp and "pain" and stabbing and it is described as located in the left chest area. No radiation. At its maximum, severity described as severe. When seen in the E.D., it was gone. Modifying factors. Not worsened by anything. Not relieved by anything. This started today and is now gone. It was abrupt in onset and has been intermittent (lasting 5 - 10 seconds). Onset during random. No nausea, vomiting, difficulty breathing or diaphoresis. (L side under L breast). No additional chest pain. Similar symptoms previously: Many times, as bad. Recent medical care: The patient was seen recently at this facility in the emergency department and a clinic. ( txed here 08/01 for pe and dvt, dc home on xarelto, pt had pe's before, was on xarelto before but was taken off it, when pt came in the other day it was because of leg pain, not chest issues, today was her scheduled f/u and she went to clinic and told them she was having random chest pain, they sent her here). REVIEW OF SYSTEMS The patient has had a nonproductive cough (for 1 1/2 months ago). No pedal edema, calf pain or difficulty breathing. All systems otherwise negative, except as recorded above. PAST HISTORY See nurses notes. PROBLEMS: DVT - Deep Venous Thrombosis. Lower Extremity Pain. DVT - Deep Venous Thrombosis. Pulmonary Embolism. Sinus Problems. Immunizations. Ectopic . Migraine Headache. Myofascial Strain. Back Injury. LNMP - Last Normal Menstrual Period. Back Pain. --14:12 Giuseppe, K Moira, R.N. ADDITIONAL SURGERIES: Appendectomy. Bilateral Tubal Ligation. Ectopic preg. Sinus Surgery. --14:12 Tiara Chin R.N. SOCIAL HISTORY Light tobacco smoker. No alcohol use or drug use. No recent travel. Is a local resident. FAMILY HISTORY History of heart disease. Diabetes in grandparent. peripheral artery disease. ADDITIONAL NOTES The nursing notes have been reviewed with agreement regarding the chief complaint, HPI, ROS, PMH and patient medications and allergies. PHYSICAL EXAM Vital Signs: 08/06/2016 14:08 BP: 127/58. HR: 69. RR: 16. O2 saturation: 99%. Have been reviewed as normal and appear to be correct. Temperature: 98.1 oral- temperature normal. Appearance: Alert. Oriented X3. No acute distress. Eyes: Pupils equal, round and reactive to light. Eyes normal inspection. Neck: Normal inspection. Neck supple. CVS: Normal heart rate and rhythm. Heart sounds normal. Pulses normal. Respiratory: No respiratory distress. Breath sounds normal. Chest nontender. Back: Normal external inspection. Skin: Skin warm and dry. Normal skin color. No rash. Normal skin turgor. Extremities: Extremities exhibit normal ROM. No lower extremity edema. Neuro: Oriented X 3. No motor deficit. No sensory deficit. LABS, X-RAYS, AND EKG EKG: EKG time: (1416). No acute process. No acute ischemia. Normal EKG. Rate: 68. Normal EKG. interpreted by Dr Younger and reviewed by me at 1438. EKG unchanged when compared with prior EKG. The EKG appears to be a good tracing. Interpretation time: 1418. Chest CT: . The study was interpreted by the radiologist and discussed with the radiologist. Interpretation time: 1607. Laboratory Tests: CBC w Diff: (YOMAIRA: 08/06/2016 14:22) ( MsgRcvd 08/06/2016 14:46) Final results Test Result Flag Units (Reference) WHITE BLOOD COUNT 6.9 K/uL (4.5-11.5) RED BLOOD COUNT 4.58 M/uL (4.00-5.20) HEMOGLOBIN 14.4 gm/dL (12.0-16.0) HEMATOCRIT 42.4 % (36.0-46.0) MEAN CELL VOLUME 93 fL (80-100) MEAN CORPUSCULAR HGB 31 pg (26-34) MEAN CORPUSCULAR HGB CONC 34 g/dL (31-37) RED CELL DISTRIBUTION WIDTH 13.9 % (11.6-14.8) PLATELET COUNT 154 K/uL (150-400) NEUTROPHIL % 59.9 % (50-75) LYMPH % 27.1 % (25-40) MONO % 8.9 % (3-14) EOSINOPHIL % 3.6 % (0-4) BASOPHIL % 0.5 % (0-2) [id number]: (YOMAIRA: 08/06/2016 14:22) ( [facility] 08/06/2016 14:57) Final results Test Result Flag Units (Reference) D-DIMER QUANTITATIVE 0.85 H ug/mLFEU (0.27-0.52) The primary value of this quantitative assay relates toits negative predictive value (i.e. exclusion) of pulmonaryembolism/deep vein thrombosis/DIC.Elevated levels of d-dimer may also occur with:, age, cancer, inflammation, liver disease,post-op, infection, hematoma, coronary disease, peripheralarteriopathy, bleeding disorders and thrombolytic treatment.Results should be correlated with other clinical andradiological data.Testing Methodology: Latex Immunoassay CPK: (YOMAIRA: 08/06/2016 17:55) ( [facility] 08/06/2016 18:26) Final results Test Result Flag Units (Reference) CPK 91 U/L (24-260) TROPONIN I <0.05 ng/mL (0.00-1.5) TROPONIN REFERENCE RANGE:<0.1 NEGATIVE0.1-1.5 INDETERMINANT>1.5 POSITIVE CMP: (YOMAIRA: 08/06/2016 14:22) ( [facility] 08/06/2016 15:16) Final results Test Result Flag Units (Reference) GLUCOSE 95 mg/dL (70-110) BUN 12 mg/dL (7-18) CREATININE 0.8 mg/dL (0.6-1.3) Estimated GFR >60 mL/min Estimated GFR- >60 mL/min Note: Persistent reduction over 3 months in eGFR<60 mL/min/1.73 m2 defines CKD. Patients with eGFR values>=60 mL/min/1.73 m2 may also have CKD if evidence ofpersistent proteinuria. Additional information may be foundat [email or web address].org. SODIUM 140 mmol/L (136-145) POTASSIUM 4.2 mmol/L (3.5-5.1) CHLORIDE 104 mmol/L (98-107) CARBON DIOXIDE 27 mmol/L (21-32) CALCIUM 8.8 mg/dL (8.5-10.1) TOTAL PROTEIN 7.0 g/dL (6.4-8.2) ALBUMIN 3.6 g/dL (3.3-5.0) BILIRUBIN, TOTAL 0.4 mg/dL (0.0-1.0) ALKALINE PHOSPHATASE 76 U/L (46-116) AST (SGOT) 15 U/L (15-37) ALT (SGPT) 24 U/L (12-78) CPK 108 U/L (24-260) TROPONIN I <0.05 ng/mL (0.00-1.5) TROPONIN REFERENCE RANGE:<0.1 NEGATIVE0.1-1.5 INDETERMINANT>1.5 POSITIVE . PROGRESS AND PROCEDURES Course of Care: labs, ct, ekg, and us from last visit D-DIMER QUANTITATIVE 3.62 H ug/mLFEU (0.27-0.52) EKG: Normal EKG. Rate: 77. Prior EKG unavailable. The study has been independently viewed by me. Chest CT: Small pulmonary embolism (multiple). The study was interpreted contemporaneously by me and discussed with the radiologist. Lower Extremity Sonography: Positive exam (proximal popliteal extending through the posterior tibial veins). The exam was performed by a media technician. pt had random episode of cp immediately after exam, and it lasted 8 sec, sharp, stabbing, no diaphoresis, no sob or dypsnea, and no change on director of cardiac cath lab in [facility] 15:00 08/06/16. had discussion with Dr Michele re pt's tx plan and cta order, after discussion, Dr Michele agreed with the current orders and tx plan 0028. pt updated with current lab and ct results, pending 2nd set of cardica enzymes 18:49 08/06/16. Dr Younger consulted on case re my dc plan, he agrees with my plan to leave pt on her current dose of xarelto and f/u with pcp. Patient counseled in person regarding the patient's stable condition, test results and diagnosis. 18:31. Differential Diagnosis: I considered muscle strain, costochondritis, myositis, pleurisy, myocardial infarction, intermediate coronary syndrome, unstable angina, angina, aortic dissection, mitral valve prolapse, pericarditis, pulmonary embolism, pneumonia, gastroesophageal reflux disease, esophagitis and esophageal spasm as a possible cause of chest pain in this patient. This is a partial list of diagnoses considered. Above considerations are based on history, physical exam, reassessment, laboratory data, EKG and other information. Differential diagnosis was discussed with patient. Disposition: Discharged home in good and unchanged condition (18:38). Condition: good and stable. CLINICAL IMPRESSION Atypical chest pain .12 lead EKG performed. Acute pulmonary embolism. No acute cor pulmonale, hypotension or respiratory failure. No pulmonary embolism associated with , childbirth, ectopic or . INSTRUCTIONS (stay on Xarelto on current dose as previously directed and discussed). Warnings: Further evaluation is necessary in order to assess the possibility of serious illness. It is very important to follow up with a physician. GENERAL WARNINGS: Return or contact your physician immediately if your condition worsens or changes unexpectedly, if not improving as expected, or if other problems arise. SPECIFICALLY, return if you develop chest, neck, jaw, shoulder, arm, or back pain, difficulty breathing, a fluttering sensation in your chest, lightheadedness, fainting, excessive fatigue, or sudden sweating. Follow-up: Follow up with your doctor tomorrow even if well. Call for an appointment. Summary of care provided to patient. Understanding of the discharge instructions verbalized by patient. (Electronically signed by Natalia Magdaleno A.R.N.P. 08/06/2016 22:17)
--- NOTE | 2016-08-06 19:59 | ED ORDER SUMMARY ---
..... Patient: DESHAWN GENAO OrderSheet [facility] VisitID: [id number] [place] [address] 45y, F Registration Date/Time: 08/06/2016 ORDER SHEET Weight: 94.3 kg (stated) Allergies: Penicillins GENERAL ORDERS: Medical Scheduler (Continuous) (14:34 08/06/2016 HBivens A.R.N.P.) (Ack 14:36 RMarsden R.N.) (14:50 RMarsden R.N.) CTA Thorax w Cont (No) (pending,normal few days ago) Urgent (14:34 08/06/2016 HBivens A.R.N.P.) (Ack 14:43 RKaruga) (16:15 RMarsden R.N.) CBC w Diff Urgent (14:34 08/06/2016 HBivens A.R.N.P.) (Ack 14:43 RKaruga) (16:15 RMarsden R.N.) CMP Urgent (14:34 08/06/2016 HBivens A.R.N.P.) (Ack 14:43 RKaruga) (16:15 RMarsden R.N.) CPK Urgent (14:34 08/06/2016 HBivens A.R.N.P.) (Ack 14:43 RKaruga) (16:15 RMarsden R.N.) Troponin-I Urgent (14:34 08/06/2016 HBivens A.R.N.P.) (Ack 14:43 RKaruga) (16:15 RMarsden R.N.) D-Dimer Urgent (14:34 08/06/2016 HBivens A.R.N.P.) (Ack 14:43 RKaruga) (16:15 RMarsden R.N.) Oxygen (2 L/min) (NC) (14:34 08/06/2016 HBivens A.R.N.P.) (Ack 14:36 RMarsden R.N.) (14:50 RMarsden R.N.) CPK Urgent (16:10 08/06/2016 HBivens A.R.N.P.) (Ack 16:13 [facility]) Troponin-I Urgent (16:10 08/06/2016 HBivens A.R.N.P.) (Ack 16:13 [facility]) MEDICATION ORDERS: IV FLUIDS: IV Saline Lock (14:30 08/06/2016 RMarsricardo R.N. per protocol) (14:31 RMarsden R.N.) ORDER SHEET NOTES: [Electronically signed by Callie Mina R.N. (21:02 08/06/2016)] [Electronically signed by Natalia MagdalenoNStevenPSteven (22:17 08/06/2016)] [Electronically locked/signed by Callie Mina R.N. (21:02 08/06/2016)]
--- NOTE | 2016-08-06 19:59 | ED NURSING NOTES ---
Clinical Report - Nurses [facility] [address] [place] [address] 08/06/2016 14:05 Patient: DESHAWN GENAO TRIAGE Triage time 14:07. Acuity: LEVEL 2. Chief Complaint: CHEST PAIN. Alert. No acute distress. SEPSIS SCREEN: Sepsis Screen. Negative (no infection suspected/documented). Heart rate not greater than 90. Respiratory rate not greater than 20. WILL COMA SCORE: [place] Coma Scale: 15- eyes open spontaneously (4); best verbal response- oriented x 4 (5); best motor response- obeys commands (6). --14:13 Tiara Chin R.N. 14:08 08/06/16. BP: 127/58. HR: 69. RR: 16. O2 saturation: 99%. Pain level now 410. --14:13 Tiara Chin R.N. 14:14 08/06/16. Temp: 98.1 F. --14:14 Tiara Chin R.N. Weight: 94.3 kg stated. Height/Length: 64 inches Per Patient. BMI: 35.7. --14:10 Tiara Chin R.N. Medications Xarelto Oral. --14:10 Tiara Chin R.N. Allergies Penicillins. --14:10 Tiara Chin R.N. Medication/allergy information source: the patient. --14:13 Tiara Chin R.N. History Arrived by private vehicle. Historian: patient. Primary physician ([facility]). ( Pt states she was here a few days ago and dx with multiple PEs. c/o new pain starting today on left chest. Sent over from [facility] clinic. States she also has a DVT in her right leg as well.). This started today. PAST MEDICAL HX: Denies current . SOCIAL HX: Light tobacco smoker (cigarette)- less than 1/2 a pack per day. Occasional alcohol use. History of drug use: marijuana. FALL RISK ASSESSMENT: Fall risk assessment completed. No fall risk identified. NUTRITIONAL RISK ASSESSMENT: The nutritional risk assessment revealed no deficiencies. FUNCTIONAL ASSESSMENT: Functional assessment: no impairments noted. LEARNING NEEDS ASSESSMENT: The learning needs assessment revealed no barriers. SKIN INTEGRITY ASSESSMENT: Skin integrity risk assessment completed. No skin integrity risk identified. --14:13 Tiara Chin R.N. PROBLEMS: DVT - Deep Venous Thrombosis. Lower Extremity Pain. DVT - Deep Venous Thrombosis. Pulmonary Embolism. Sinus Problems. Immunizations. Ectopic . Migraine Headache. Myofascial Strain. Back Injury. LNMP - Last Normal Menstrual Period. Back Pain. --14:12 Tiara Chin R.N. ADDITIONAL SURGERIES: Appendectomy. Bilateral Tubal Ligation. Ectopic preg. Sinus Surgery. --14:12 Tiara Chin R.N. Interventions ID band on patient. To treatment room. --14:13 Tiara Chin R.N. PHYSICAL ASSESSMENT 14:14 08/06/16. Ambulatory to room. GENERAL / NEURO / PSYCH: Alert. Oriented X 4. Appears in no acute distress. HEENT: Mucous membranes are pink. RESPIRATORY: Respirations not labored. CVS: Capillary refill less than 2 seconds. GI / : Abdomen soft and nontender. EXTREMITIES: No lower extremity edema. SKIN: Skin is warm and dry. Normal skin turgor. --14:14 Tiara Chin R.N. NURSING PROGRESS NOTES The plan of care for this patient has been created. Patient gowned. Head of bed elevated. Call light placed in reach. Bed placed in lowest position. Brakes of bed on. Patient ready for evaluation- chart flagged. --14:15 Tiara Chin R.N. 14:20 08/06/2016 Site #1 started via IV in the right antecubital space with an 20g angiocath; one attempt. Blood drawn: rainbow set. Labeled in the presence of the patient and sent to the lab. Saline lock flushed with 10 mL saline. --14:25 Tiara Chin R.N. EKG time: (6507). EKG was ordered, performed by a nurse and shown to the ED physician. --14:27 Naomie Lopes R.N. 14:56 08/06/16. Patient informed about reason for wait and about plan of care. ( patient states she is due for a 15mg tab of xarelto. Natalia Magdaleno, BUSINESS DEVELOPMENT ASSISTANT notified. Natalia advised that the patient hold off on the medication.). --14:56 Rebekah Wallace R.N. 16:06 08/06/16. Patient informed about reason for wait and about plan of care. ( pt reports she would like to rest. Lights dimmed. Call lazo in reach.). --16:06 Rebekah Wallace R.N. 16:17 08/06/16. BP: 115/67. HR: 64. RR: 18. O2 saturation: 99%. --16:17 Callie Mina R.N. ( pt has had her CTA.). Patient waiting for evaluation and CT results. --16:17 Callie Mina R.N. 19:14 08/06/16. BP: 110/62. HR: 71. RR: 14. O2 saturation: 95% on room air. Pain level now: 0/10. --19:15 Rebekah Wallace R.N. 19:15 08/06/16. Patient informed about reason for wait and about plan of care. --19:15 Rebekah Wallace R.N. 20:52 08/06/2016 Site #1 removed upon discharge. Bandage applied. --20:52 Callie Mina R.N. 20:35 08/06/16. BP: 125/72. HR: 97. RR: 18. O2 saturation: 97%. Temp: 98.2 F. Pain level now 0/10. --20:52 Callie Mina R.N. DISPOSITION / DISCHARGE Departure time: 20:52 Aug 06 2016. Condition at departure: improved and stable. No learning barriers present. The patient was discharged by the nurse practitioner. She was discharged home and accompanied by outpatient interviewing clerk. She left the Emergency Department ambulatory and via private vehicle. Radial Drill Press Set Up Operator driving. --20:54 Callie Mina R.N. FALL RISK ASSESSMENT: Fall risk assessment completed. No fall risk identified. --20:54 Callie Mina R.N. Locked/Released at 08/06/2016 21:02 by Callie Mina R.N.
--- NOTE | 2016-08-06 19:59 | ED ORDER SUMMARY ---
..... Patient: DESHAWN GENAO OrderSheet [facility] VisitID: [id number] [place] [address] 45y, F Registration Date/Time: 08/06/2016 ORDER SHEET Weight: 94.3 kg (stated) Allergies: Penicillins GENERAL ORDERS: Supply Chain Procurement Manager (Continuous) (14:34 08/06/2016 HBivens A.R.N.P.) (Ack 14:36 RMarsden R.N.) (14:50 RMarsden R.N.) CTA Thorax w Cont (No) (pending,normal few days ago) Urgent (14:34 08/06/2016 HBivens A.R.N.P.) (Ack 14:43 RKaruga) (16:15 RMarsden R.N.) CBC w Diff Urgent (14:34 08/06/2016 HBivens A.R.N.P.) (Ack 14:43 RKaruga) (16:15 RMarsden R.N.) CMP Urgent (14:34 08/06/2016 HBivens A.R.N.P.) (Ack 14:43 RKaruga) (16:15 RMarsden R.N.) CPK Urgent (14:34 08/06/2016 HBivens A.R.N.P.) (Ack 14:43 RKaruga) (16:15 RMarsden R.N.) Troponin-I Urgent (14:34 08/06/2016 HBivens A.R.N.P.) (Ack 14:43 RKaruga) (16:15 RMarsden R.N.) D-Dimer Urgent (14:34 08/06/2016 HBivens A.R.N.P.) (Ack 14:43 RKaruga) (16:15 RMarsden R.N.) Oxygen (2 L/min) (NC) (14:34 08/06/2016 HBivens A.R.N.P.) (Ack 14:36 RMarsden R.N.) (14:50 RMarsden R.N.) CPK Urgent (16:10 08/06/2016 HBivens A.R.N.P.) (Ack 16:13 [facility]) Troponin-I Urgent (16:10 08/06/2016 HBivens A.R.N.P.) (Ack 16:13 [facility]) MEDICATION ORDERS: IV FLUIDS: IV Saline Lock (14:30 08/06/2016 RMarsricardo R.N. per protocol) (14:31 RMarsden R.N.) ORDER SHEET NOTES: [Electronically signed by Callie Mina R.N. (21:02 08/06/2016)] [Electronically signed by Natalia MagdalenoNStevenPSteven (22:17 08/06/2016)] [Electronically locked/signed by Callie Mina R.N. (21:02 08/06/2016)]
--- NOTE | 2016-08-06 19:59 | ED NURSING NOTES ---
Clinical Report - Nurses [facility] [address] [place] [address] 08/06/2016 14:05 Patient: DESHAWN GENAO TRIAGE Triage time 14:07. Acuity: LEVEL 2. Chief Complaint: CHEST PAIN. Alert. No acute distress. SEPSIS SCREEN: Sepsis Screen. Negative (no infection suspected/documented). Heart rate not greater than 90. Respiratory rate not greater than 20. WILL COMA SCORE: [place] Coma Scale: 15- eyes open spontaneously (4); best verbal response- oriented x 4 (5); best motor response- obeys commands (6). --14:13 Tiara Chin R.N. 14:08 08/06/16. BP: 127/58. HR: 69. RR: 16. O2 saturation: 99%. Pain level now 410. --14:13 Tiara Chin R.N. 14:14 08/06/16. Temp: 98.1 F. --14:14 Tiara Chin R.N. Weight: 94.3 kg stated. Height/Length: 64 inches Per Patient. BMI: 35.7. --14:10 Tiara Chin R.N. Medications Xarelto Oral. --14:10 Tiara Chin R.N. Allergies Penicillins. --14:10 Tiara Chin R.N. Medication/allergy information source: the patient. --14:13 Tiara Chin R.N. History Arrived by private vehicle. Historian: patient. Primary physician ([facility]). ( Pt states she was here a few days ago and dx with multiple PEs. c/o new pain starting today on left chest. Sent over from [facility] clinic. States she also has a DVT in her right leg as well.). This started today. PAST MEDICAL HX: Denies current . SOCIAL HX: Light tobacco smoker (cigarette)- less than 1/2 a pack per day. Occasional alcohol use. History of drug use: marijuana. FALL RISK ASSESSMENT: Fall risk assessment completed. No fall risk identified. NUTRITIONAL RISK ASSESSMENT: The nutritional risk assessment revealed no deficiencies. FUNCTIONAL ASSESSMENT: Functional assessment: no impairments noted. LEARNING NEEDS ASSESSMENT: The learning needs assessment revealed no barriers. SKIN INTEGRITY ASSESSMENT: Skin integrity risk assessment completed. No skin integrity risk identified. --14:13 Tiara Chin R.N. PROBLEMS: DVT - Deep Venous Thrombosis. Lower Extremity Pain. DVT - Deep Venous Thrombosis. Pulmonary Embolism. Sinus Problems. Immunizations. Ectopic . Migraine Headache. Myofascial Strain. Back Injury. LNMP - Last Normal Menstrual Period. Back Pain. --14:12 Tiara Chin R.N. ADDITIONAL SURGERIES: Appendectomy. Bilateral Tubal Ligation. Ectopic preg. Sinus Surgery. --14:12 Tiara Chin R.N. Interventions ID band on patient. To treatment room. --14:13 Tiara Chin R.N. PHYSICAL ASSESSMENT 14:14 08/06/16. Ambulatory to room. GENERAL / NEURO / PSYCH: Alert. Oriented X 4. Appears in no acute distress. HEENT: Mucous membranes are pink. RESPIRATORY: Respirations not labored. CVS: Capillary refill less than 2 seconds. GI / : Abdomen soft and nontender. EXTREMITIES: No lower extremity edema. SKIN: Skin is warm and dry. Normal skin turgor. --14:14 Tiara Chin R.N. NURSING PROGRESS NOTES The plan of care for this patient has been created. Patient gowned. Head of bed elevated. Call light placed in reach. Bed placed in lowest position. Brakes of bed on. Patient ready for evaluation- chart flagged. --14:15 Tiara Chin R.N. 14:20 08/06/2016 Site #1 started via IV in the right antecubital space with an 20g angiocath; one attempt. Blood drawn: rainbow set. Labeled in the presence of the patient and sent to the lab. Saline lock flushed with 10 mL saline. --14:25 Tiara Chin R.N. EKG time: (7284). EKG was ordered, performed by a nurse and shown to the ED physician. --14:27 Naomie Lopes R.N. 14:56 08/06/16. Patient informed about reason for wait and about plan of care. ( patient states she is due for a 15mg tab of xarelto. Natalia Magdaleno, SOCIAL MEDIA COMMUNITY MANAGER notified. Natalia advised that the patient hold off on the medication.). --14:56 Rebekah Wlalace R.N. 16:06 08/06/16. Patient informed about reason for wait and about plan of care. ( pt reports she would like to rest. Lights dimmed. Call lazo in reach.). --16:06 Rebekah Wallace R.N. 16:17 08/06/16. BP: 115/67. HR: 64. RR: 18. O2 saturation: 99%. --16:17 Callie Mina R.N. ( pt has had her CTA.). Patient waiting for evaluation and CT results. --16:17 Callie Mina R.N. 19:14 08/06/16. BP: 110/62. HR: 71. RR: 14. O2 saturation: 95% on room air. Pain level now: 0/10. --19:15 Rebekah Wallace R.N. 19:15 08/06/16. Patient informed about reason for wait and about plan of care. --19:15 Rebekah Wallace R.N. 20:52 08/06/2016 Site #1 removed upon discharge. Bandage applied. --20:52 Callie Mina R.N. 20:35 08/06/16. BP: 125/72. HR: 97. RR: 18. O2 saturation: 97%. Temp: 98.2 F. Pain level now 0/10. --20:52 Callie Mina R.N. DISPOSITION / DISCHARGE Departure time: 20:52 Aug 06 2016. Condition at departure: improved and stable. No learning barriers present. The patient was discharged by the nurse practitioner. She was discharged home and accompanied by industrial relations manager. She left the Emergency Department ambulatory and via private vehicle. Manager Combination driving. --20:54 Callie Mina R.N. FALL RISK ASSESSMENT: Fall risk assessment completed. No fall risk identified. --20:54 Callie Mina R.N. Locked/Released at 08/06/2016 21:02 by Callie Mina R.N.
--- NOTE | 2016-08-06 22:17 | ED MED RECONCILIATION SUMMARY ---
Patient: DESHAWN GENAO Medication Reconciliation Report [facility] VisitID: [id number] [address] [place] [address] 45y, F Registration Date/Time: 08/06/2016 Weight: 94.3 kg Height/Length: 64 in. BMI: 35.7 ALLERGIES: Penicillins The patient's Home Medications are listed below: THE FOLLOWING MEDICATIONS NEED TO BE RECONCILED: Xarelto Oral The source(s) of the original Home Medication information: patient The following Medications were given to the patient in the Emergency Department: None. The following Medications were prescribed to the patient: None.
--- NOTE | 2016-08-06 22:17 | ED MED RECONCILIATION SUMMARY ---
Patient: DESHAWN GENAO Medication Reconciliation Report [facility] VisitID: [id number] [address] [place] [place] [address] 45y, F Registration Date/Time: 08/06/2016 Weight: 94.3 kg Height/Length: 64 in. BMI: 35.7 ALLERGIES: Penicillins The patient's Home Medications are listed below: THE FOLLOWING MEDICATIONS NEED TO BE RECONCILED: Xarelto Oral The source(s) of the original Home Medication information: patient The following Medications were given to the patient in the Emergency Department: None. The following Medications were prescribed to the patient: None.
--- NOTE | 2016-08-06 22:17 | ED DISCHARGE INSTRUCTIONS ---
Patient: DESHAWN GENAO General Instructions [facility] VisitID: [id number] [place] [address] 45y, F Registration Date/Time: 08/06/2016 Atypical chest pain .12 lead EKG performed. Acute pulmonary embolism. No acute cor pulmonale, hypotension or respiratory failure. No pulmonary embolism associated with , childbirth, ectopic or . INSTRUCTIONS (stay on Xarelto on current dose as previously directed and discussed). Warnings: Further evaluation is necessary in order to assess the possibility of serious illness. It is very important to follow up with a physician. GENERAL WARNINGS: Return or contact your physician immediately if your condition worsens or changes unexpectedly, if not improving as expected, or if other problems arise. SPECIFICALLY, return if you develop chest, neck, jaw, shoulder, arm, or back pain, difficulty breathing, a fluttering sensation in your chest, lightheadedness, fainting, excessive fatigue, or sudden sweating. Follow-up: Follow up with your doctor tomorrow even if well. Call for an appointment. Summary of care provided to patient. Understanding of the discharge instructions verbalized by patient. ADDITIONAL INFORMATION Chest Pain, Noncardiac Based on your visit today, the exact cause of your chest pain is not certain. Your condition does not seem serious and your pain does not appear to be coming from your heart. However, sometimes the signs of a serious problem take more time to appear. Therefore, please watch for the warning signs listed below. Home Care: Rest today and avoid strenuous activity. Take any prescribed medicine as directed. Follow Up with your doctor or this facility as instructed or if you do not start to feel better within 24 hours. Get Prompt Medical Attention if any of the following occur: A change in the type of pain: if it feels different, becomes more severe, lasts longer, or begins to spread into your shoulder, arm, neck, jaw or back Shortness of breath or increased pain with breathing Cough with dark colored sputum (phlegm) or blood Weakness, dizziness, or fainting Fever of 100.4F (38C) or higher, or as directed by your healthcare provider Swelling, pain or redness in one leg Chest Pain, Uncertain Cause Chest pain can happen for a number of reasons. Sometimes the cause can not be determined. If yourcondition does not seem serious, and your pain does not appear to be coming from your heart, your doctor may recommend watching it closely. Sometimes the signs of a serious problem take more time to appear. Therefore, watch for the warning signs listed below. Home care After your visit, follow these recommendations: Rest today and avoid strenuous activity. Take any prescribed medicine as directed. Follow-up care Follow up with your doctor or this facility as instructed or if you do not start to feel better within 24 hours. Call 911 Get immediate medical attention if any of the following occur: A change in the type of pain: if it feels different, becomes more severe, lasts longer, or begins to spread into your shoulder, arm, neck, jaw or back Shortness of breath or increased pain with breathing Weakness, dizziness, or fainting Rapid heart beat Get prompt medical attention Call your doctor right away if any of the following occur: Cough with dark colored sputum (phlegm) or blood Fever of 100.4F(38C) or higher, or as directed by your health care provider Swelling, pain or redness in one leg You have been given the following additional information: Chest Pain, Noncardiac Chest Pain, Uncertain Cause (Electronically signed by Natalia Magdaleno A.R.N.P. 08/06/2016 22:17)
--- NOTE | 2016-08-06 22:17 | ED MAR SUMMARY ---
..... Medication Administration Record [facility] [address] [place], [place] [id number] Patient: DESHAWN GENAO Visit ID: [id number] 45y, F Weight: 94.3 kg Height/Length: 64 in BMI: 35.7 ALLERGIES: Penicillins
--- NOTE | 2016-08-06 22:17 | ED MAR SUMMARY ---
..... Medication Administration Record [facility] [address] [place], [place] [id number] Patient: DESHAWN GENAO Visit ID: [id number] 45y, F Weight: 94.3 kg Height/Length: 64 in BMI: 35.7 ALLERGIES: Penicillins
== END 2016-08-06 20:52 | disposition home or self-care (01) ==
LOC: ED SRH 14:04
DX: I26.99 Other pulmonary embolism without acute cor pulmonale (principal); R07.89 Other chest pain; F17.200 Nicotine dependence, unspecified, uncomplicated
CPT/HCPCS: 90074; 90100; 90616; 91556; 92610; 95059

== ENCOUNTER 2016-09-03 21:42 | Emergency (ER) | payer OTHER ==
--- NOTE | 2016-09-04 | ED CLINICAL REPORT ---
Clinical Report - Physicians/Mid Levels [facility] [address] [place] [address] 09/03/2016 21:44 Patient: DESHAWN GENAO Time Seen: 23:58. Arrived- By private vehicle. Historian- patient. CPT: ER phys charges level 4 (#[id number]). HISTORY OF PRESENT ILLNESS Chief Complaint: LOWER EXTREMITY PAIN and ; PROBLEM IN THE RIGHT THIGH. Severity is described as being moderate. The quality is noted to be aching and "pain". This started today and is still present. Symptoms located in the area of the right thigh. The patient has not had redness. No swelling, bladder dysfunction, bowel dysfunction, sensory loss or motor loss. No difficulty walking. Patient denies an injury. Similar symptoms previously: As bad. Diagnosis: deep vein thrombosis. Recent medical care: The patient was seen recently by a health care provider. REVIEW OF SYSTEMS No cough, chest pain, difficulty breathing, fever or skin rash. No enlarged lymph nodes, neck pain, back pain, headache or blurred vision. No sore throat, abdominal pain, vomiting, diarrhea or black stools. No difficulty with urination or bloody stools. All systems otherwise negative, except as recorded above. PAST HISTORY ( Atypical Chest Pain. DVT - Deep Venous Thrombosis. Lower Extremity Pain. DVT - Deep Venous Thrombosis. Pulmonary Embolism. Sinus Problems. Immunizations. Ectopic . Migraine Headache. Myofascial Strain. Back Injury. LNMP - Last Normal Menstrual Period. Back Pain. ADDITIONAL SURGERIES: Appendectomy. Bilateral Tubal Ligation. Ectopic preg. Sinus Surgery.). Medications: Chantix Oral. Lasix Oral. Xarelto Oral. Allergies: Oxycodone. Penicillins. SOCIAL HISTORY Light tobacco smoker (cigarette)- less than 1/2 a pack per day. ADDITIONAL NOTES The nursing notes have been reviewed. PHYSICAL EXAM Vital Signs: 09/03/2016 22:12 BP: 116/59. HR: 78. RR: 16. O2 saturation: 98%. Temp: 97.6 F. Pain level now: 11/03. Appearance: Alert. No acute distress. Anxious. Eyes: Eyes normal inspection. ENT: Pharynx normal. Neck: Normal inspection. Neck supple. No JVD or carotid bruit. CVS: Normal heart rate and rhythm. Heart sounds normal. Respiratory: No respiratory distress. Breath sounds normal. Abdomen: Soft and nontender. Back: No tenderness. Skin: Skin intact. Skin warm. Normal skin color. Extremities: Right thigh: moderate tenderness located in the mid thigh. Neurovascular intact distally. No swelling, laceration, abrasion, ecchymosis or deformity. No lower extremity edema. Extremities otherwise negative. Neuro: Oriented X 3. No motor deficit. No sensory deficit. Reflexes normal. LABS, X-RAYS, AND EKG Lower Extremity Sonography: Improved condition of the lower leg DVT compared to last study. No clot in the right thigh. Study type: abbreviated; utilized duplex and color Doppler sonography. The exam was performed by a patient care technician. The study was independently viewed by me and interpreted contemporaneously by me. PROGRESS AND PROCEDURES Course of Care: Pt with known prior DVT right leg. US today showed less clot than on recent US. No clot in the right thigh. Patient/family counseled. Disposition: Discharged. Condition: stable. CLINICAL IMPRESSION Right soft tissue thigh pain. INSTRUCTIONS No strenuous activity. You may walk and bear weight as tolerated. Warnings: Further evaluation is necessary. GENERAL WARNINGS: Return or contact your physician immediately if your condition worsens or changes unexpectedly, if not improving as expected, or if other problems arise. Your Current Medications: CONTINUE TAKING THE FOLLOWING MEDICATIONS: Chantix Oral. Lasix Oral. Xarelto Oral. Follow-up: Follow up with your doctor as scheduled. Understanding of the discharge instructions verbalized by patient. (Electronically signed by Craig Sheikh MD 09/06/2016 17:37)
--- NOTE | 2016-09-04 | ED CLINICAL REPORT ---
Clinical Report - Physicians/Mid Levels [facility] [address] [place] [address] 09/03/2016 21:44 Patient: DESHAWN GENAO Time Seen: 23:58. Arrived- By private vehicle. Historian- patient. CPT: ER phys charges level 4 (#[id number]). HISTORY OF PRESENT ILLNESS Chief Complaint: LOWER EXTREMITY PAIN and ; PROBLEM IN THE RIGHT THIGH. Severity is described as being moderate. The quality is noted to be aching and "pain". This started today and is still present. Symptoms located in the area of the right thigh. The patient has not had redness. No swelling, bladder dysfunction, bowel dysfunction, sensory loss or motor loss. No difficulty walking. Patient denies an injury. Similar symptoms previously: As bad. Diagnosis: deep vein thrombosis. Recent medical care: The patient was seen recently by a health care provider. REVIEW OF SYSTEMS No cough, chest pain, difficulty breathing, fever or skin rash. No enlarged lymph nodes, neck pain, back pain, headache or blurred vision. No sore throat, abdominal pain, vomiting, diarrhea or black stools. No difficulty with urination or bloody stools. All systems otherwise negative, except as recorded above. PAST HISTORY ( Atypical Chest Pain. DVT - Deep Venous Thrombosis. Lower Extremity Pain. DVT - Deep Venous Thrombosis. Pulmonary Embolism. Sinus Problems. Immunizations. Ectopic . Migraine Headache. Myofascial Strain. Back Injury. LNMP - Last Normal Menstrual Period. Back Pain. ADDITIONAL SURGERIES: Appendectomy. Bilateral Tubal Ligation. Ectopic preg. Sinus Surgery.). Medications: Chantix Oral. Lasix Oral. Xarelto Oral. Allergies: Oxycodone. Penicillins. SOCIAL HISTORY Light tobacco smoker (cigarette)- less than 1/2 a pack per day. ADDITIONAL NOTES The nursing notes have been reviewed. PHYSICAL EXAM Vital Signs: 09/03/2016 22:12 BP: 116/59. HR: 78. RR: 16. O2 saturation: 98%. Temp: 97.6 F. Pain level now: 11/03. Appearance: Alert. No acute distress. Anxious. Eyes: Eyes normal inspection. ENT: Pharynx normal. Neck: Normal inspection. Neck supple. No JVD or carotid bruit. CVS: Normal heart rate and rhythm. Heart sounds normal. Respiratory: No respiratory distress. Breath sounds normal. Abdomen: Soft and nontender. Back: No tenderness. Skin: Skin intact. Skin warm. Normal skin color. Extremities: Right thigh: moderate tenderness located in the mid thigh. Neurovascular intact distally. No swelling, laceration, abrasion, ecchymosis or deformity. No lower extremity edema. Extremities otherwise negative. Neuro: Oriented X 3. No motor deficit. No sensory deficit. Reflexes normal. LABS, X-RAYS, AND EKG Lower Extremity Sonography: Improved condition of the lower leg DVT compared to last study. No clot in the right thigh. Study type: abbreviated; utilized duplex and color Doppler sonography. The exam was performed by a optical engineering technician. The study was independently viewed by me and interpreted contemporaneously by me. PROGRESS AND PROCEDURES Course of Care: Pt with known prior DVT right leg. US today showed less clot than on recent US. No clot in the right thigh. Patient/family counseled. Disposition: Discharged. Condition: stable. CLINICAL IMPRESSION Right soft tissue thigh pain. INSTRUCTIONS No strenuous activity. You may walk and bear weight as tolerated. Warnings: Further evaluation is necessary. GENERAL WARNINGS: Return or contact your physician immediately if your condition worsens or changes unexpectedly, if not improving as expected, or if other problems arise. Your Current Medications: CONTINUE TAKING THE FOLLOWING MEDICATIONS: Chantix Oral. Lasix Oral. Xarelto Oral. Follow-up: Follow up with your doctor as scheduled. Understanding of the discharge instructions verbalized by patient. (Electronically signed by Craig Sheikh MD 09/06/2016 17:37)
--- NOTE | 2016-09-04 00:01 | ED NURSING NOTES ---
Clinical Report - Nurses [facility] [address] [place] [address] 09/03/2016 21:44 Patient: DESHAWN GENAO TRIAGE Triage time 22:12. Acuity: LEVEL 3. Chief Complaint: RIGHT LOWER EXTREMITY PAIN. --22:15 TonyaB, R.N. 22:12 09/03/16. BP: 116/59. HR: 78. RR: 16. O2 saturation: 98%. Temp: 97.6 F. Pain level now: 11/03. --22:15 TonyaB, R.N. Weight: 97.5 kg. Height/Length: 64 inches. BMI: 36.9. --22:14 TonyaB, R.N. Medications Xarelto Oral. --22:12 TonyaB, R.N. Lasix Oral. --22:13 TonyaB, R.N. Chantix Oral. --22:13 TonyaB, R.N. Allergies Penicillins. --22:12 TonyaB, R.N. Oxycodone. --22:12 TonyaB, R.N. History Arrived by private vehicle. Historian: patient. No injury occurred. It is described as radiating to the right lower extremity and thigh. 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 PAST MEDICAL HX: Tetanus status: up-to-date. Immunizations: up-to-date. SOCIAL HX: Light tobacco smoker. No infectious disease exposure. SELF HARM ASSESSMENT: A self harm assessment was performed. The patient answered "no" to the question "Have you recently felt down, depressed, or hopeless?", "Have you noticed less interest or pleasure in doing things?", "Do you have thoughts of harming or killing yourself?", "Are you here because you tried to hurt yourself?", "Have you ever tried to hurt yourself before today?", "Have you recently had thoughts about harming or killing others?" and "Do you have any dangerous items in your possession?". FALL RISK ASSESSMENT: Fall risk assessment completed. No fall risk identified. NUTRITIONAL RISK ASSESSMENT: The nutritional risk assessment revealed no deficiencies. FUNCTIONAL ASSESSMENT: Functional assessment: no impairments noted. LEARNING NEEDS ASSESSMENT: The learning needs assessment revealed no barriers. SKIN INTEGRITY ASSESSMENT: Skin integrity risk assessment completed. No skin integrity risk identified. --22:15 Davin Oliveira. This occurred just prior to arrival. --22:17 Liborio Oliveira PROBLEMS: Atypical Chest Pain. DVT - Deep Venous Thrombosis. Lower Extremity Pain. DVT - Deep Venous Thrombosis. Pulmonary Embolism. Sinus Problems. Immunizations. Ectopic . Migraine Headache. Myofascial Strain. Back Injury. LNMP - Last Normal Menstrual Period. Back Pain. --22:13 Davin Oliveira. ADDITIONAL SURGERIES: Appendectomy. Bilateral Tubal Ligation. Ectopic preg. Sinus Surgery. --22:13 Davin Oliveira. Interventions ID band on patient. To treatment room. --22:15 Liborio Oliveira PHYSICAL ASSESSMENT Ambulatory to room. GENERAL / NEURO / PSYCH: Oriented X 4. Alert. Appears in no acute distress. Appears anxious. EXTREMITIES: Extremity pulses are within normal limits. Extremities exhibit normal ROM. Neuro-vascular status intact to the extremity. No lower extremity edema. Normal gait. Right thigh: tenderness. SKIN: Skin intact. Skin is warm and dry. --22:15 Liborio Oliveira NURSING PROGRESS NOTES Call light placed in reach. Side rails up. Bed placed in lowest position. --22:15 Liborio Oliveira 23:15- US Tech at bedside wot perform US exam. --23:18 Ina Pena R.N. ( pt resting in bed, no distress noted). --00:00 Liborio Oliveira DISPOSITION / DISCHARGE Departure time: 00:07. Condition at departure: improved. No learning barriers present. Activity restrictions reviewed (no strenous activity). Patient verbalized understanding. Written instructions provided in Arabic. No warning instructions, medication instructions, treatment instructions, referrals given to the patient or diet instructions. No follow up contact number given or stop smoking instructions. No work note given or school note given. The patient was discharged by the physician. She was discharged home. She left the Emergency Department ambulatory and via private vehicle. Patient driving. FALL RISK ASSESSMENT: Fall risk assessment completed. No fall risk identified. --00:07 Liborio Oliveira 00:06 09/04/16. BP: deferred. HR: 74. RR: 18. O2 saturation: 99%. Temp: deferred. Pain level now: 09/03. --00:07 Liborio Oliveira Locked/Released at 09/04/2016 0:08 by Liborio Oliveira
--- NOTE | 2016-09-04 00:01 | ED ORDER SUMMARY ---
..... Patient: DESHAWN GENAO OrderSheet [facility] VisitID: [id number] [address] [place] [address] 45y, F Registration Date/Time: 09/03/2016 ORDER SHEET Weight: 97.5 kg Allergies: Penicillins, Oxycodone GENERAL ORDERS: US Venous Right Urgent (22:26 09/03/2016 Kareem THORNTON) (Ack 22:29 LMuller) (23:29 LMuller) MEDICATION ORDERS: IV FLUIDS: ORDER SHEET NOTES: [Electronically signed by Meche Christensen R.N. (00:08 09/04/2016)] [Electronically signed by Craig Sheikh MD (17:37 09/06/2016)] [Electronically locked/signed by Meche Christensen R.N. (00:08 09/04/2016)]
--- NOTE | 2016-09-04 00:01 | ED ORDER SUMMARY ---
..... Patient: DESHAWN GENAO OrderSheet [facility] VisitID: [id number] [address] [place] [address] 45y, F Registration Date/Time: 09/03/2016 ORDER SHEET Weight: 97.5 kg Allergies: Penicillins, Oxycodone GENERAL ORDERS: US Venous Right Urgent (22:26 09/03/2016 Kareem THORNTON) (Ack 22:29 LMuller) (23:29 LMuller) MEDICATION ORDERS: IV FLUIDS: ORDER SHEET NOTES: [Electronically signed by Meche Christensen R.N. (00:08 09/04/2016)] [Electronically signed by Craig Sheikh MD (17:37 09/06/2016)] [Electronically locked/signed by Meche Christensen R.N. (00:08 09/04/2016)]
--- NOTE | 2016-09-04 00:01 | ED NURSING NOTES ---
Clinical Report - Nurses [place] [facility] [address] [place] [address] 09/03/2016 21:44 Patient: DESHAWN GENAO TRIAGE Triage time 22:12. Acuity: LEVEL 3. Chief Complaint: RIGHT LOWER EXTREMITY PAIN. --22:15 TonyaB, R.N. 22:12 09/03/16. BP: 116/59. HR: 78. RR: 16. O2 saturation: 98%. Temp: 97.6 F. Pain level now: 11/03. --22:15 TonyaB, R.N. Weight: 97.5 kg. Height/Length: 64 inches. BMI: 36.9. --22:14 TonyaB, R.N. Medications Xarelto Oral. --22:12 TonyaB, R.N. Lasix Oral. --22:13 TonyaB, R.N. Chantix Oral. --22:13 TonyaB, R.N. Allergies Penicillins. --22:12 TonyaB, R.N. Oxycodone. --22:12 TonyaB, R.N. History Arrived by private vehicle. Historian: patient. No injury occurred. It is described as radiating to the right lower extremity and thigh. 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 PAST MEDICAL HX: Tetanus status: up-to-date. Immunizations: up-to-date. SOCIAL HX: Light tobacco smoker. No infectious disease exposure. SELF HARM ASSESSMENT: A self harm assessment was performed. The patient answered "no" to the question "Have you recently felt down, depressed, or hopeless?", "Have you noticed less interest or pleasure in doing things?", "Do you have thoughts of harming or killing yourself?", "Are you here because you tried to hurt yourself?", "Have you ever tried to hurt yourself before today?", "Have you recently had thoughts about harming or killing others?" and "Do you have any dangerous items in your possession?". FALL RISK ASSESSMENT: Fall risk assessment completed. No fall risk identified. NUTRITIONAL RISK ASSESSMENT: The nutritional risk assessment revealed no deficiencies. FUNCTIONAL ASSESSMENT: Functional assessment: no impairments noted. LEARNING NEEDS ASSESSMENT: The learning needs assessment revealed no barriers. SKIN INTEGRITY ASSESSMENT: Skin integrity risk assessment completed. No skin integrity risk identified. --22:15 Daivn Oliveira. This occurred just prior to arrival. --22:17 Liborio Oliveira PROBLEMS: Atypical Chest Pain. DVT - Deep Venous Thrombosis. Lower Extremity Pain. DVT - Deep Venous Thrombosis. Pulmonary Embolism. Sinus Problems. Immunizations. Ectopic . Migraine Headache. Myofascial Strain. Back Injury. LNMP - Last Normal Menstrual Period. Back Pain. --22:13 Davin Oliveira. ADDITIONAL SURGERIES: Appendectomy. Bilateral Tubal Ligation. Ectopic preg. Sinus Surgery. --22:13 Davin Oliveira. Interventions ID band on patient. To treatment room. --22:15 Liborio Oliveira PHYSICAL ASSESSMENT Ambulatory to room. GENERAL / NEURO / PSYCH: Oriented X 4. Alert. Appears in no acute distress. Appears anxious. EXTREMITIES: Extremity pulses are within normal limits. Extremities exhibit normal ROM. Neuro-vascular status intact to the extremity. No lower extremity edema. Normal gait. Right thigh: tenderness. SKIN: Skin intact. Skin is warm and dry. --22:15 Liborio Oliveira NURSING PROGRESS NOTES Call light placed in reach. Side rails up. Bed placed in lowest position. --22:15 Liborio Oliveira 23:15- US Tech at bedside wot perform US exam. --23:18 Ina Pena R.N. ( pt resting in bed, no distress noted). --00:00 Liborio Oliveira DISPOSITION / DISCHARGE Departure time: 00:07. Condition at departure: improved. No learning barriers present. Activity restrictions reviewed (no strenous activity). Patient verbalized understanding. Written instructions provided in Sinhala. No warning instructions, medication instructions, treatment instructions, referrals given to the patient or diet instructions. No follow up contact number given or stop smoking instructions. No work note given or school note given. The patient was discharged by the physician. She was discharged home. She left the Emergency Department ambulatory and via private vehicle. Patient driving. FALL RISK ASSESSMENT: Fall risk assessment completed. No fall risk identified. --00:07 Liborio Oliveira 00:06 09/04/16. BP: deferred. HR: 74. RR: 18. O2 saturation: 99%. Temp: deferred. Pain level now: 09/03. --00:07 Liborio Oliveira Locked/Released at 09/04/2016 0:08 by Liborio Oliveira
--- NOTE | 2016-09-04 00:18 | DIAGNOSTIC IMAGING REPORT ---
PROCEDURE: US VENOUS - RIGHT EXT INDICATION: PAIN TECHNIQUE: Duplex sonography of the deep venous system in the right lower extremity was performed. Compression and augmentation techniques were used. COMPARISON: 01/27/2017 FINDINGS: The distal popliteal vein is now patent. There is residual thrombus in 1 of 2 posterior tibial veins in the mid vein. Distally both posterior tibial veins demonstrate flow. Superficial femoral and common femoral and deep veins as well as proximal greater saphenous vein are patent. IMPRESSION: 1. Residual clot in one of the posterior tibial veins without extension into the distal popliteal vein. 2. Superficial, common, and greater saphenous veins proximally are patent.
--- NOTE | 2016-09-06 17:38 | ED DISCHARGE INSTRUCTIONS ---
Patient: DESHAWN GENAO General Instructions [facility] VisitID: [id number] [address] [place] [address] 45y, F Registration Date/Time: 09/03/2016 Right soft tissue thigh pain. INSTRUCTIONS No strenuous activity. You may walk and bear weight as tolerated. Warnings: Further evaluation is necessary. GENERAL WARNINGS: Return or contact your physician immediately if your condition worsens or changes unexpectedly, if not improving as expected, or if other problems arise. Your Current Medications: CONTINUE TAKING THE FOLLOWING MEDICATIONS: Chantix Oral. Lasix Oral. Xarelto Oral. Follow-up: Follow up with your doctor as scheduled. Understanding of the discharge instructions verbalized by patient. No strenuous activity. You may walk and bear weight as tolerated. (Electronically signed by Craig Sheikh MD 09/06/2016 17:37)
--- NOTE | 2016-09-06 17:38 | ED DISCHARGE INSTRUCTIONS ---
Patient: DESHAWN GENAO General Instructions [facility] VisitID: [id number] [address] [place] [address] 45y, F Registration Date/Time: 09/03/2016 Right soft tissue thigh pain. INSTRUCTIONS No strenuous activity. You may walk and bear weight as tolerated. Warnings: Further evaluation is necessary. GENERAL WARNINGS: Return or contact your physician immediately if your condition worsens or changes unexpectedly, if not improving as expected, or if other problems arise. Your Current Medications: CONTINUE TAKING THE FOLLOWING MEDICATIONS: Chantix Oral. Lasix Oral. Xarelto Oral. Follow-up: Follow up with your doctor as scheduled. Understanding of the discharge instructions verbalized by patient. No strenuous activity. You may walk and bear weight as tolerated. (Electronically signed by Craig Sheikh MD 09/06/2016 17:37)
--- NOTE | 2016-09-06 17:38 | ED MED RECONCILIATION SUMMARY ---
Patient: DESHAWN GENAO Medication Reconciliation Report [facility] VisitID: [id number] [address] [place] [address] 45y, F Registration Date/Time: 09/03/2016 Weight: 97.5 kg Height/Length: 64 in. BMI: 36.9 ALLERGIES: Oxycodone, Penicillins The patient's Home Medications are listed below: CONTINUE TAKING THE FOLLOWING MEDICATIONS: Chantix Oral Lasix Oral Xarelto Oral The source(s) of the original Home Medication information: Not obtained. The following Medications were given to the patient in the Emergency Department: None. The following Medications were prescribed to the patient: None.
--- NOTE | 2016-09-06 17:38 | ED MAR SUMMARY ---
..... Medication Administration Record [facility] [address] [place], [place] [id number] Patient: DESHAWN GENAO Visit ID: [id number] 45y, F Weight: 97.5 kg Height/Length: 64 in BMI: 36.9 ALLERGIES: Oxycodone, Penicillins
--- NOTE | 2016-09-06 17:38 | ED MED RECONCILIATION SUMMARY ---
Patient: DESHAWN GENAO Medication Reconciliation Report [facility] VisitID: [id number] [address] [place] [place] [address] 45y, F Registration Date/Time: 09/03/2016 Weight: 97.5 kg Height/Length: 64 in. BMI: 36.9 ALLERGIES: Oxycodone, Penicillins The patient's Home Medications are listed below: CONTINUE TAKING THE FOLLOWING MEDICATIONS: Chantix Oral Lasix Oral Xarelto Oral The source(s) of the original Home Medication information: Not obtained. The following Medications were given to the patient in the Emergency Department: None. The following Medications were prescribed to the patient: None.
--- NOTE | 2016-09-06 17:38 | ED MAR SUMMARY ---
..... Medication Administration Record [facility] [address] [place], [place] [id number] Patient: DESHAWN GENAO Visit ID: [id number] 45y, F Weight: 97.5 kg Height/Length: 64 in BMI: 36.9 ALLERGIES: Oxycodone, Penicillins
== END 2016-09-04 00:05 | disposition home or self-care (01) ==
LOC: ED SRH 21:42
DX: M79.651 Pain in right thigh (principal); Z86.711 Personal history of pulmonary embolism; Z86.718 Personal history of other venous thrombosis and embolism; Z79.01 Long term (current) use of anticoagulants; F17.210 Nicotine dependence, cigarettes, uncomplicated; Z88.0 Allergy status to penicillin; Z88.5 Allergy status to narcotic agent